=== PATIENT | female | born 1945 | race Caucasian/White ===

== ENCOUNTER 2016-12-23 15:16 | Inpatient (IN) | payer MEDICARE ==
[~2016-12-23] VITALS: Ht 157.5 cm; Wt 71.7 kg
--- NOTE | 2016-12-23 01:30 | NUR ---
RESTING WITH EYES CLOSED, RESP WITH EASE, NO DISTRESS NOTED, FALL PRECAUTIONS IN PLACE, CL IN REACH
[2016-12-23 17:20] LABS: BASOPHILS 0.2 % (0.0-2.0); EOSINOPHILS 0.3 % (0-7); HEMATOCRIT 29.1 % (36.0-48.0); HEMOGLOBIN 8.6 g/dL (12-16); IMMATURE GRANULOCYTES 0.3 % (0-5); LYMPHOCYTES 8.5 % (15-50); MCH 23.9 pg (26.0-34.0); MCHC 29.6 g/dL (31.0-37.0); MCV 80.8 fL (80.0-100.0); MEAN PLATELET VOLUME 9.8 fL (7.4-10.4); MONOCYTES 5.8 % (2-11); NEUTROPHILS 84.9 % (40-80); PLATELET COUNT 317 10x3/uL (130-400); RDW 17.1 % (11.5-14.5)
[2016-12-23 17:31] LABS: APTT 31.8 SECONDS (22.8-39.4); INR 1.04 (0.85-1.17); PROTIME 13.4 SECONDS (11.6-15.0)
[2016-12-23 17:33] LABS: ALBUMIN 3.1 g/dL (3.4-5.0); ANION GAP 17.5 mmol/L (8-16); BILIRUBIN - TOTAL 0.53 mg/dL (0.2-1.3); CALCIUM 8.8 mg/dL (8.5-10.1); CARBON DIOXIDE 20.6 mmol/L (21.0-32.0); CREATININE - SERUM 1.3 mg/dL (0.6-1.3); POTASSIUM - SERUM 3.1 mmol/L (3.5-5.1); PROTEIN - SERUM 6.6 g/dL (6.4-8.2)
[2016-12-23 19:54] VITALS: BP 148/59; BMI 28.9
--- NOTE | 2016-12-23 19:55 | NUR ---
PT ARRIVED TO UNIT VIA STRETCHER FROM ER. ADMITTED TO ROOM 2230 WITH DIAGNOSIS OF BILATERAL FX PATELLAS. PT TRANSFERRED TO BED WITH 3 PERSON SHEET LIFT. PT DENIED DISCOMFORT DURING TRANSFER. SALINE LOCK NOTED TO RFA. BORJA CATH PATENT AND DRAINING TO A GRAVITY BAG. SR'S ARE UP X 3 IN BED. CALL LIGHT AND BEDSIDE TABLE ARE WITHIN EASY REACH.
[2016-12-23] MEDS ORDERED: LASIX40 MG PO (21:11)
[2016-12-23] MEDS ORDERED: DIOVAN40 MG PO (21:11)
[2016-12-23] MEDS ORDERED: K-DUR20 MEQ PO (21:12)
[2016-12-23] MEDS ORDERED: BENTYL 20 MG TA20 MG PO (21:12)
[2016-12-23] MEDS ORDERED: PRISTIQ50 MG PO (21:12)
[2016-12-23] MEDS ORDERED: MECLIZINE HCL25 MG PO (21:13)
[2016-12-23] MEDS ORDERED: PROTONIX40 MG PO (21:13)
[2016-12-23] MEDS ORDERED: ROBAXIN-750750 MG PO (21:14)
[2016-12-23] MEDS ORDERED: LYRICA50 MG PO (21:14)
[2016-12-23] MEDS ORDERED: NITROQUICK0.4 MG SL (21:15)
[2016-12-23] MEDS ORDERED: PLAVIX75 MG PO (21:15)
--- NOTE | 2016-12-23 22:23 | NUR ---
PT RESTING IN BED WITH EYES OPEN. VOICED COMPLAINT OF NAHUM KNEE AND LEFT THIGH PAIN LEVEL OF 8. MEDICATED PER DEC.
--- NOTE | 2016-12-23 23:58 | NUR ---
PT IS RESTING IN BED WITH EYES CLOSED.
[2016-12-24 02:15] VITALS: BP 118/51
--- NOTE | 2016-12-24 02:35 | NUR ---
PT VOICED A PAIN LEVEL OF 8 IN NAHUM KNEES. MEDICATED PER DEC.
[2016-12-24 04:00] VITALS: BP 121/53
--- NOTE | 2016-12-24 04:39 | NUR ---
PT IS RESTING QUIETLY IN BED WITH EYES CLOSED. NO DISTRESS NOTED.
--- NOTE | 2016-12-24 07:14 | NUR ---
PATIENT IN BED WITH IV INTACT. NO COMPLAINTS OR SIGNS OF DISTRESS. FAMILY AT BEDSIDE. CALL LIGHT WITHIN REACH.
--- NOTE | 2016-12-24 07:26 | NUR ---
PT ASLEEP IN BED, DAUGHTER IN CHAIR BESIDE HER, AROUSES EASILY, PT ASKS FOR PAIN MED, NO OTHER COMPLAINTS, BED LOWEST POSITION, CALL LIGHT IN REACH, SIDE RAILS UP X2, WILL CONTINUE TO MONITOR
[2016-12-24 08:46] VITALS: BP 138/52
[2016-12-24 10:56] VITALS: Ht 157.5 cm; Wt 71.7 kg
[2016-12-24 11:53] VITALS: BP 137/53
[2016-12-24 16:25] VITALS: BP 154/66
--- NOTE | 2016-12-24 18:11 | NUR ---
PT RESTING IN BED, NO COMPLAINTS, BED LOWEST POSITION, CALL LIGHT IN REACH, SIDE RAILS UP X2, WILL CONTINUE TO MONITOR
[2016-12-24 20:00] VITALS: BP 159/77
[2016-12-25] VITALS (15 sets, daily range): BP systolic 128–159; BP diastolic 47–76
--- NOTE | 2016-12-25 02:18 | NUR ---
RESTING WITH EYES CLOSED, RESP WITH EASE, NO DISTRESS NOTED, FALL PRECAUTIONS IN PLACE, CL IN REACH
[2016-12-25 05:54] LABS: BASOPHILS 0.5 % (0.0-2.0); HEMATOCRIT 25.1 % (36.0-48.0); IMMATURE GRANULOCYTES 0.2 % (0-5); LYMPHOCYTES 23.2 % (15-50); MCH 23.7 pg (26.0-34.0); MCHC 29.1 g/dL (31.0-37.0); MCV 81.5 fL (80.0-100.0); MEAN PLATELET VOLUME 9.8 fL (7.4-10.4); MONOCYTES 12.5 % (2-11); NEUTROPHILS 59.6 % (40-80); PLATELET COUNT 274 10x3/uL (130-400); RBC 3.08 10x6/uL (4.00-5.40); RDW 17.6 % (11.5-14.5)
[2016-12-25 05:56] LABS: WBC 5.7 10x3/uL (4.8-10.8)
[2016-12-25 05:57] LABS: HEMOGLOBIN 7.3 g/dL (12-16)
[2016-12-25 06:29] LABS: APTT 39.4 SECONDS (22.8-39.4); INR 1.11 (0.85-1.17); PROTIME 14.2 SECONDS (11.6-15.0)
[2016-12-25 06:33] LABS: BILIRUBIN - TOTAL 0.96 mg/dL (0.2-1.3); CALCIUM 8.2 mg/dL (8.5-10.1); CARBON DIOXIDE 21.9 mmol/L (21.0-32.0); PROTEIN - SERUM 5.2 g/dL (6.4-8.2)
[2016-12-25 06:34] LABS: CREATININE - SERUM 0.9 mg/dL (0.6-1.3)
[2016-12-25 06:35] LABS: ALBUMIN 2.3 g/dL (3.4-5.0); POTASSIUM - SERUM 2.9 mmol/L (3.5-5.1)
--- NOTE | 2016-12-25 06:45 | NUR ---
PAGE DR. SHARMA ABOUT PT HGB RESULTS OF 7.3 AWAITING FOR RESPONSE. WILL INFORM ON-COMING NURSE.
--- NOTE | 2016-12-25 07:35 | NUR ---
PT SLEEPING IN BED, EASILY AROUSED WHEN SPOKEN TO, CAN EXPRESS CARES AND CONCERNS, NO CURRENT NEEDS, ASSESSMENT COMPLETE, CALL LIGHT IN REACH, WILL CONTINUE TO MONITOR
--- NOTE | 2016-12-25 08:42 | NUR ---
PAGED DR SHARMA AGAIN TO INFORM HIM HER HGB 7.3
--- NOTE | 2016-12-25 11:53 | NUR ---
20 GUAGE IV SITED TO L FOREARM. X1 ATTEMPT. SECURED WITH TAPE AND CLAMPED. POPEYE BONE, ALERTED TO START BLOOD.
--- NOTE | 2016-12-25 12:50 | NUR ---
STARTED INFUSING BLOOD, NO ADVERSE REACTIONS, TOLERATING WELL, STARTING VITALS T-98.8 P-83 R-16 BP-146/71, WILL CONTINUE TO MONITOR
--- NOTE | 2016-12-25 14:37 | NUR ---
PT TOLERATING BLOOD INFUSION WELL, NO ADVERSE REACTIONS, WILL CONTINUE TO MONITOR
--- NOTE | 2016-12-25 15:10 | NUR ---
2ND UNIT OF BLOOD STARTED, NO ADVERSE REACTIONS, TOLERATING WELL WILL CONTINUE TO MONITOR
--- NOTE | 2016-12-25 19:38 | NUR ---
REC'D LYING IN BED AWAKE AND ALERT. RESP EVEN AND UNLABORED WITH NO DISTRESS NOTED. CAN EXPRESS NEEDS AND WANTS. ASSISTANCE GIVEN WITH TURNING AND REPOSITIONING. ASSESSMENT COMPLETED. C/L IN REACH AT BEDSIDE.
[2016-12-26] VITALS (12 sets, daily range): BP systolic 143–169; BP diastolic 56–86
--- NOTE | 2016-12-26 02:00 | NUR ---
PT IN BED WITH NO DISTRESS. RESPIRATIONS EVEN AND UNLABORED. LEFT FOREARM IV WITH FLUIDS RUNNING PER ORDER. BORJA IS DRAINING URINE BY GRAVITY. SCD'S ON. DILAUDID CANDY BAR ATTENDANT IN PLACE FOR PAIN CONTROL. SIDE RAILS UP X 2. BED LOW. CALL LIGHT IN REACH.
[2016-12-26 04:22] LABS: BASOPHILS 0.6 % (0.0-2.0); EOSINOPHILS 4.7 % (0-7); HEMATOCRIT 28.7 % (36.0-48.0); HEMOGLOBIN 8.9 g/dL (12-16); IMMATURE GRANULOCYTES 0.2 % (0-5); LYMPHOCYTES 20.9 % (15-50); MCH 25.3 pg (26.0-34.0); MCV 81.5 fL (80.0-100.0); MONOCYTES 8.5 % (2-11); NEUTROPHILS 65.1 % (40-80); PLATELET COUNT 248 10x3/uL (130-400); RBC 3.52 10x6/uL (4.00-5.40); RDW 17.9 % (11.5-14.5); WBC 6.6 10x3/uL (4.8-10.8)
[2016-12-26 04:45] LABS: ALBUMIN 2.1 g/dL (3.4-5.0); ANION GAP 12.2 mmol/L (8-16); BILIRUBIN - TOTAL 1.7 mg/dL (0.2-1.3); CALCIUM 8.2 mg/dL (8.5-10.1); CARBON DIOXIDE 23.8 mmol/L (21.0-32.0); CREATININE - SERUM 0.9 mg/dL (0.6-1.3)
--- NOTE | 2016-12-26 08:00 | NUR ---
CONSENT FORMS SIGNED AND WITNESSED AT THIS TIME. PRE OPERATIVE MEDICATIONS GIVEN WITH THE EXCEPTION OF ROBINUL PT WAS NAUSEOUS. PRN ZOFRAN ADMINISTERED. GRANDAUGHTER AT BEDSIDE. IV TO LEFT FOREARM PATENT AND ASSESSMENT PERFORMED PER FLOWSHEET. CALL LIGHT IN REACH, WILL CONTINUE WITH PLAN OF CARE.
--- NOTE | 2016-12-26 08:46 | NUR ---
TAKEN TO PRE OP HOLDING AREA AT THIS TIME. WILL MONITOR PT AFTER SURGERY.
--- NOTE | 2016-12-26 10:17 | NUR ---
LEFT SHOULDER FX SO ARM WAS PLACED IN A SLING PRIOR TO SURG PER D.N.
--- NOTE | 2016-12-26 11:35 | NUR ---
RECEIVED BACK TO ROOM 2230 AT THIS TIME FROM PACU. VITAL SIGNS STABLE AND LIMITED RADIOLOGY TECHNICIAN INITIATED PER ORDER. FAMILY AT BEDSIDE. WILL CONTINUE TO MONITOR PT.
--- NOTE | 2016-12-26 13:00 | NUR ---
SLEEPING AT THIS TIME. VITAL SIGNS STABLE AND RESPIRATIONS EVEN AND ON LABORED. CALL LIGHT IN REACH AND MARY MAT ALARM ON AND IN WORKING ORDER. DAUGHTER AT BEDSIDE. WILL CONTINUE WITH PLAN OF CARE.
--- NOTE | 2016-12-26 15:30 | NUR ---
DAUGHTER AT BEDSIDE. PT DENIES NEEDS AT THIS TIME. FILLING MIXER IN USE FOR PAIN CONTROL. CALL LIGHT IN REACH, WILL CONTINUE WITH PLAN OF CARE.
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
--- NOTE | 2016-12-26 17:06 | NUR ---
Rehab Note- Rehab Prescreen Order received. The patient has [facility] and will require a PreAuth priot to IRF stay. Will need an OT & PT eval for PreAuth. Thank you for this referral! Hemalatha Sellers RN Clinical Liaison, Michael
--- NOTE | 2016-12-26 19:51 | NUR ---
PT LYING IN BED CRYING , PRN PERCOCET GIVEN, SUMANTH WELL, ASSESSMENT COMPETED, NO ACUTE DISTRESS NOTED, DTR IN ROOM, FALL PRECAUTIONS IN PLACE, CL IN REACH, WILL MONITOR
[2016-12-27 01:00] VITALS: BP 151/72
--- NOTE | 2016-12-27 01:28 | NUR ---
PRN PAIN MED GIVEN PER REQUEST FOR KNEE PAIN, SUMANTH WELL, DTR AT BEDSIDE, CL IN REACH
[2016-12-27 04:00] VITALS: BP 160/75
[2016-12-27 05:39] LABS: BASOPHILS 0.3 % (0.0-2.0); HEMATOCRIT 29.3 % (36.0-48.0); HEMOGLOBIN 9.1 g/dL (12-16); IMMATURE GRANULOCYTES 0.1 % (0-5); LYMPHOCYTES 12.8 % (15-50); MCH 25.4 pg (26.0-34.0); MCHC 31.1 g/dL (31.0-37.0); MCV 81.8 fL (80.0-100.0); MEAN PLATELET VOLUME 9.6 fL (7.4-10.4); MONOCYTES 9.2 % (2-11); NEUTROPHILS 75.6 % (40-80); PLATELET COUNT 247 10x3/uL (130-400); RBC 3.58 10x6/uL (4.00-5.40); WBC 7.5 10x3/uL (4.8-10.8)
--- NOTE | 2016-12-27 05:52 | NUR ---
PRN PAIN MED GIVEN FOR C/O BREAKTHROUGH PAIN 05/08, SUMANTH WELL, DTR AT BEDSIDE, FALL PRECAUTIONS IN PLACE, CL IN REACH
[2016-12-27 06:16] LABS: ALBUMIN 2.1 g/dL (3.4-5.0); BILIRUBIN - TOTAL 0.85 mg/dL (0.2-1.3); CALCIUM 8.3 mg/dL (8.5-10.1); CARBON DIOXIDE 22.3 mmol/L (21.0-32.0); CREATININE - SERUM 0.9 mg/dL (0.6-1.3); POTASSIUM - SERUM 3.3 mmol/L (3.5-5.1); PROTEIN - SERUM 5.1 g/dL (6.4-8.2)
--- NOTE | 2016-12-27 06:53 | NUR ---
KCL GIVEN PER E. PROTOCOL FOR LEVEL OF 3.3, LABS FOR RECHECK ORDERED
--- NOTE | 2016-12-27 08:00 | NUR ---
ECONOMIC ANALYST D/C AT THIS TIME AND BORJA CATHETER D/C WITH CATH TIP INTACT. PT TOLERATED WITHOUT COMPLAINTS. CALL LIGHT IN REACH, WILL CONTINUE WITH PLAN OF CARE.
[2016-12-27 08:13] VITALS: BP 161/71
--- NOTE | 2016-12-27 10:08 | NUR ---
SCHEDULED COLACE ADMINISTERED AT THIS TIME. ASSESSMENT PERFORMED PER FLOWSHEET AND ICE PACKS APPLIED TO BILATERAL KNEES. REPOSITIONED IN BED FOR COMFORT. INSTRUCTED PT ON USE OF INCENTIVE SPIROMETER AND INSPIRATORY VOLUME OF 1,000ML. CALL LIGHT IN REACH, BED ALARM ON AND IN WORKING ORDER. WILL CONTINUE WITH PLAN OF CARE.
[2016-12-27 11:32] VITALS: BP 151/70
--- NOTE | 2016-12-27 12:15 | NUR ---
VOIDED IN BEDPAN WITHOUT DIFFICULTY. PROCESSING TECHNOLOGIST ASSISTING PT WITH MEAL AT THIS TIME. CALL LIGHT IN REACH, WILL CONTINUE WITH PLAN OF CARE.
--- NOTE | 2016-12-27 13:04 | NUR ---
NUTRITION MONITORING & EVAL CHART REVIEWED. TOLERATING REG DIET. 100% INTAKE LUNCH. WILL CONTINUE TO PROVIDE DIET, HONOR FOOD PREFERENCES. RD FOLLOWING
--- NOTE | 2016-12-27 14:28 | NUR ---
Rehab Note- Awaiting PreAuth for possibly being admitted to IRF through [facility]. Thank you again for this referral! Hemalatha Sellers RN Clinical Liaison, Michael
[2016-12-27 14:58] VITALS: BP 110/60
--- NOTE | 2016-12-27 15:06 | NUR ---
PRN PERCOCET-10 ADMINISTERED AT THIS TIME. CALL LIGHT IN REACH, MARQUIS CHAUDHARI AT THIS TIME. CALL LIGHT IN REACH, WILL CONTINUE WITH PLAN OF CARE
--- NOTE | 2016-12-27 18:46 | NUR ---
SCHEDULED MEDICATIONS ADMINISTERED AT THIS TIME WELL PRN PERCOCET-10 FOR PAIN. ASSESSMENT PERFORMED PER FLOWSHEET. SON REMAINS AT BEDSIDE. CALL LIGHT IN REACH AND MARY MAT ALARM ON AND IN USE. WILL CONTINUE WITH PLAN OF CARE.
[2016-12-27 19:00] VITALS: BP 140/66
[2016-12-28] VITALS: BP 144/74
[2016-12-28 04:00] VITALS: BP 154/68
[2016-12-28 06:13] LABS: BASOPHILS 0.4 % (0.0-2.0); EOSINOPHILS 4.6 % (0-7); HEMATOCRIT 30.3 % (36.0-48.0); HEMOGLOBIN 9.1 g/dL (12-16); IMMATURE GRANULOCYTES 0.2 % (0-5); LYMPHOCYTES 17.9 % (15-50); MCH 24.9 pg (26.0-34.0); MEAN PLATELET VOLUME 10.2 fL (7.4-10.4); MONOCYTES 9.3 % (2-11); NEUTROPHILS 67.6 % (40-80); PLATELET COUNT 248 10x3/uL (130-400); RBC 3.65 10x6/uL (4.00-5.40); RDW 18.7 % (11.5-14.5); WBC 5.7 10x3/uL (4.8-10.8)
[2016-12-28 06:31] LABS: ALBUMIN 2.1 g/dL (3.4-5.0); ANION GAP 11.9 mmol/L (8-16); CALCIUM 8.7 mg/dL (8.5-10.1); CARBON DIOXIDE 24.1 mmol/L (21.0-32.0); CREATININE - SERUM 0.9 mg/dL (0.6-1.3); PROTEIN - SERUM 5.3 g/dL (6.4-8.2)
--- NOTE | 2016-12-28 07:15 | NUR ---
REPORT RECEIVED FROM PEST TECHNICIAN NURSE. CALL LIGHT IN REACH.
[2016-12-28 08:30] VITALS: BP 148/84
--- NOTE | 2016-12-28 08:50 | NUR ---
ASSESSMENT COMPLETED. PLEXI-PULSES TO BLE. BED ALARM ON. SON IN ROOM. CALL LIGHT IN REACH. WILL CONTINUE WITH PLAN OF CARE.
--- NOTE | 2016-12-28 09:20 | NUR ---
AM MEDS ADMINISTERED WITH PERCOCET PER STUDENT NURSE AND INSTRUCTOR. CALL LIGHT IN REACH.
--- NOTE | 2016-12-28 10:36 | NUR ---
LAYING QUIETLY IN BED AT PRESENT DENIES ANY NEEDS RESP EVEN AND UNLABORED AT PRTESENT.
[2016-12-28 12:18] VITALS: BP 134/76
--- NOTE | 2016-12-28 12:40 | NUR ---
EATING LUNCH AT THIS TIME. CALL LIGHT IN REACH.
--- NOTE | 2016-12-28 13:40 | NUR ---
PERCOCET PO PER STUDENT NURSE AND INSTRUCTOR. CALL LIGHT IN REACH.
--- NOTE | 2016-12-28 15:40 | NUR ---
RESTING WITH EYES CLOSED. RESP EVEN AND UNLABORED. CALL LIGHT IN REACH.
[2016-12-28 16:43] VITALS: BP 134/74; BP 217/131
--- NOTE | 2016-12-28 17:25 | NUR ---
STATES PAIN IS A 10 AND REQUESTING PAIN PILL. PERCOCET PO. SON IN ROOM. CALL LIGHT IN REACH.
--- NOTE | 2016-12-28 18:07 | NUR ---
NO CHANGES IN INITIAL ASSESSMENT. PLEXI-PULSES TO BLE. BED ALARM ON. SON AT BEDSIDE. CALL LIGHT IN REACH. WILL CONTINUE WITH PLAN OF CARE.
[2016-12-28 20:00] VITALS: BP 148/82
--- NOTE | 2016-12-28 20:18 | NUR ---
AWAKE,ALERT, NO COMPLAINTS AT PRESENT. SL TO RIGHT AND LEFT FOREARM PATENT WIHTOUT REDNESS OR EDEMA NOTED. BILATERAL KNEES WIHT TEMITOPE WRAP CLEAN/DRY AND INTACT. NO NV DEFICIECTS NOTED. CL IN REACH. FAMILY AT BEDSIDE.
[2016-12-29] VITALS: BP 156/64
--- NOTE | 2016-12-29 00:18 | NUR ---
RESTING QUIETLY. NO DISTRESS NOTED. CL IN REACH. FAMILY REMAINS AT BEDSIDE.
--- NOTE | 2016-12-29 03:09 | NUR ---
RN NOTE: PT RESTING IN SUPINE POSITION WITH EYES CLOSED AND UNLABORED BREATHING. LEFT ARM IN SLING. IV X2 SALINE LOCKED. FAMILY MEMBER IS AT BEDSIDE. WILL CONTINUE TO MONITOR FOR NEEDS. CALL LIGHT WITHIN REACH.
[2016-12-29 04:00] VITALS: BP 149/72
[2016-12-29 05:28] LABS: BASOPHILS 0.5 % (0.0-2.0); EOSINOPHILS 4.2 % (0-7); HEMATOCRIT 30.1 % (36.0-48.0); HEMOGLOBIN 9.3 g/dL (12-16); LYMPHOCYTES 21.7 % (15-50); MCH 25.7 pg (26.0-34.0); MCHC 30.9 g/dL (31.0-37.0); MCV 83.1 fL (80.0-100.0); MEAN PLATELET VOLUME 10.1 fL (7.4-10.4); MONOCYTES 8.2 % (2-11); NEUTROPHILS 65.4 % (40-80); PLATELET COUNT 285 10x3/uL (130-400); RBC 3.62 10x6/uL (4.00-5.40); RDW 19.1 % (11.5-14.5); WBC 5.5 10x3/uL (4.8-10.8)
[2016-12-29 05:41] LABS: ALBUMIN 2.2 g/dL (3.4-5.0); ANION GAP 12.3 mmol/L (8-16); BILIRUBIN - TOTAL 0.61 mg/dL (0.2-1.3); CALCIUM 8.4 mg/dL (8.5-10.1); CARBON DIOXIDE 25.3 mmol/L (21.0-32.0); CREATININE - SERUM 0.9 mg/dL (0.6-1.3); POTASSIUM - SERUM 3.6 mmol/L (3.5-5.1); PROTEIN - SERUM 5.5 g/dL (6.4-8.2)
--- NOTE | 2016-12-29 05:44 | NUR ---
RESTING QUIETLY. NO DISTRESS NOTED. CL IN REACH. FAMILY AT BEDSIDE.
--- NOTE | 2016-12-29 08:19 | NUR ---
REPORT RECEIVED FROM LILLI LARA.
[2016-12-29 08:30] VITALS: BP 181/73
--- NOTE | 2016-12-29 08:43 | NUR ---
ASSESSMENT COMPLETED. PERCOCET PO WITH AM MEDS ADMINISTERED. SCDs TO BLE. CALL LIGHT IN REACH. WILL CONTINUE WITH PLAN OFCARE.
--- NOTE | 2016-12-29 09:57 | NUR ---
PHYSICAL THERAPY IN ROOM AT THIS TIME.
--- NOTE | 2016-12-29 11:40 | NUR ---
STATES TAKING HER PAIN PILL ONE HOUR BEFORE PHYSICAL THERAPY HELPS HER BETTER THAN ANYTHING. WILL GIVE THE NEXT ONE BEFORE AFTERNOON THERAPY.
[2016-12-29 12:28] VITALS: BP 133/83
--- NOTE | 2016-12-29 12:56 | NUR ---
PERCOCET PO ADMINISTERED PER LILLI LARA.
--- NOTE | 2016-12-29 14:20 | NUR ---
FAMILY AT BEDSIDE. CALL LIGHT IN REACH. NO NEEDS VOICED.
[2016-12-29 16:10] VITALS: BP 121/73
--- NOTE | 2016-12-29 16:56 | NUR ---
PAIN OF 6. PERCOCET PO. SON IN ROOM. CALL LIGHT IN REACH.
--- NOTE | 2016-12-29 18:00 | NUR ---
NO CHANGES IN INITIAL ASSESSMENT. EATING SUPPER. SCDs TO BLE. BED ALARM ON. SON IN ROOM. CALL LIGHT IN REACH. WILL CONTINUE WITH PLAN OF CARE.
[2016-12-29 20:00] VITALS: BP 120/65
--- NOTE | 2016-12-29 20:20 | NUR ---
AWAKE,ALERT. DRSG TO BILATERAL KNEES CLEAN,DRY,INTACT. NO DEFICIETS NOTED TO LOWER EXTREMITIES. SL INTACT TO BILATERAL UPPER EXT.WITHOUT REDNESS OR EDEMA. CL IN REACH. FAMILY AT BEDSIDE.
--- NOTE | 2016-12-30 01:37 | NUR ---
EYES CLOSED RESP EVEN AND UNLAOBED. NO DISTRESS NOTED. CL IN REACH. FAMILY REMAINS AT BEDSIDE.
--- NOTE | 2016-12-30 03:29 | NUR ---
PT LYING BACK IN BED RESTING QUIETLY WITH EYES CLOSED. RR NONLABORED. NO S/S OF DISTRESS OR ANY CURRENT NEEDS AT THIS TIME. CL IN REACH, BED IN LOWEST, SIDE RAILS X2. WILL CTM.
[2016-12-30 04:00] VITALS: BP 149/70
--- NOTE | 2016-12-30 04:50 | NUR ---
LYING QUIETLY. NO COMPLAINTS VOICED. CL IN REACH
[2016-12-30 05:14] LABS: BASOPHILS 0.4 % (0.0-2.0); EOSINOPHILS 4.9 % (0-7); HEMATOCRIT 28.2 % (36.0-48.0); HEMOGLOBIN 8.5 g/dL (12-16); IMMATURE GRANULOCYTES 0.2 % (0-5); LYMPHOCYTES 21.7 % (15-50); MCH 25.3 pg (26.0-34.0); MCHC 30.1 g/dL (31.0-37.0); MCV 83.9 fL (80.0-100.0); MEAN PLATELET VOLUME 9.6 fL (7.4-10.4); MONOCYTES 7.7 % (2-11); NEUTROPHILS 65.1 % (40-80); PLATELET COUNT 282 10x3/uL (130-400); RBC 3.36 10x6/uL (4.00-5.40); RDW 19.4 % (11.5-14.5); WBC 5.3 10x3/uL (4.8-10.8)
[2016-12-30 05:34] LABS: ALBUMIN 2.2 g/dL (3.4-5.0); ANION GAP 13.7 mmol/L (8-16); BILIRUBIN - TOTAL 0.56 mg/dL (0.2-1.3); CALCIUM 7.8 mg/dL (8.5-10.1); CARBON DIOXIDE 25.2 mmol/L (21.0-32.0); CREATININE - SERUM 0.9 mg/dL (0.6-1.3); POTASSIUM - SERUM 3.9 mmol/L (3.5-5.1); PROTEIN - SERUM 4.9 g/dL (6.4-8.2)
--- NOTE | 2016-12-30 07:15 | NUR ---
REPORT RECEIVED FROM REGISTERED NURSE NURSERY NURSE. CALL LIGHT IN REACH.
--- NOTE | 2016-12-30 07:15 | NUR ---
PATIENT IN BED WITH IV INTACT. NO COMPLAINTS OR SIGNS OF DISTRESS. CALL LIGHTW ITHIN REACH.
--- NOTE | 2016-12-30 08:11 | NUR ---
ASSESSMENT COMPLETED. PERCOCET PO PER PATIENT REQUEST. SON AND DR. BERNARD AT BEDSIDE. CALL LIGHT IN REACH. BED ALARM ON. SCDs TO BLE. WILL CONTINUE WITH PLAN OF CARE.
[2016-12-30 08:15] VITALS: BP 141/75
--- NOTE | 2016-12-30 09:25 | NUR ---
AM MEDS ADMINISTERED PER STUDENT NURSE AND INSTRUCTOR. CALL LIGHT IN REACH.
--- NOTE | 2016-12-30 11:00 | NUR ---
NO NEEDS VOICED AT THIS TIME. CALL LIGHT IN REACH.
--- NOTE | 2016-12-30 12:32 | NUR ---
PERCOCET PO. SON IN ROOM. CALL LIGHT IN REACH.
[2016-12-30 12:57] VITALS: BP 115/65
--- NOTE | 2016-12-30 14:30 | NUR ---
NO NEEDS VOICED AT THIS TIME. CALL LIGHT IN REACH.
[2016-12-30 16:15] VITALS: BP 131/75
--- NOTE | 2016-12-30 16:30 | NUR ---
REQUESTING PAIN PILL SO PERCOCET PO. SON AND IT RECRUITER IN ROOM. CALL LIGHT IN REACH.
--- NOTE | 2016-12-30 16:35 | NUR ---
Recieved a call from Angie at [facility]. The medical dermatologist has denied inpatient rehab for this patient, stating she meets criteria for a lower level of care such as a SNF. A peer to peer can be done if the physician disagrees. The SAGAR Ayala Has been made aware. Esther Mejia RN Clinical Liaison, Rehab
--- NOTE | 2016-12-30 16:36 | NUR ---
OT NOTE: PT COMPLETED BUE FM SKILLS. PT COMPLETED BED MOB USING RUE. PT COMPLETED ORAL HYGIENE WITH SET UP. THANK YOU, NITA HERNANDEZ
--- NOTE | 2016-12-30 16:56 | NUR ---
CM REASSESSMENT NOTE: PATIENT HAS BEEN DENIED INPATIENT REHAB. PATIENT DID CHOOSE A COUPLE OF SNF. [facility] HAS NO BEDS WHICH WAS HER 1ST CHOICE. [facility] IS HER 2ND CHOICE AND REFERRAL WILL BE SENT. PATIENTS INSURANCE CARD HAS A DIFFERENT NAME THAN [facility]ERS AND HER DAUGHTER WILL BRING IT WHEN SHE COMES TO [facility]. CALLED [facility] AND THERE WAS NO ONE THERE IN ADMINISTRATION.
--- NOTE | 2016-12-30 18:46 | NUR ---
NO CHANGES IN INITIAL ASSESSMENT. CALL LIGHT IN REACH. WILL CONTINUE WITH PLAN OF CARE.
[2016-12-30 20:00] VITALS: BP 141/61
--- NOTE | 2016-12-30 23:23 | NUR ---
ASSESSED AT THE BEGINNING OF THE SHIFT. PT IS ALERT AND ORIENTED, ABLE TO VERBALIZE NEEDS. HER SON IS REMAINING IN THE ROOM TONIGHT. BOTHE OF HER KNEES ARE WRAPPED UP WITH TEMITOPE DRESSINGS IN PLACE. THERE IS A LARGE ABD HERNIA, NOTED ON ASSESSMENT. SOME REDNESS TO BUTTOCKS. PAIN MEDS WERE GIEN AT BEDTIME AND SHE IS USING A BEDPAN TO GO TO THE BATHROOM. THE BED IS LOW, RAILS UP X'S 2 WITH THE CALL LIGHT AT HAND.
[2016-12-31] VITALS: BP 136/65
[2016-12-31 04:00] VITALS: BP 140/61
--- NOTE | 2016-12-31 08:27 | NUR ---
PT. AOX4 RESP EVEN AND NONLABORED LUNG SOUNDS CLEAR. SKIN PINK WARM AND DRY WITH GOOD TURGOR NO EDEMA. CAPILLARY REFILL <3SEC ADB SOFT AND ROUNDED [id number] BED IN LOWEST SETTING AND CALL LIGHT WITHIN REACH
[2016-12-31 08:50] VITALS: BP 143/56
--- NOTE | 2016-12-31 11:17 | NUR ---
REQUESTED AND GIVEN ONE PERCOCET PO FOR C/O BILATERAL KNEE PAIN LEVEL 9. WILL MONITOR.
[2016-12-31 12:48] VITALS: BP 114/66
[2016-12-31 13:21] LABS: % SATURATION 2 % (15-55); IRON 7 ug/dl (35-150); TOTAL IRON BIND CAPACITY 342 ug/dl (260-445); UNSAT IRON BIND CAPACITY 335 ug/dl (150-375)
[2016-12-31 16:49] VITALS: BP 105/44
--- NOTE | 2016-12-31 19:30 | NUR ---
REC'D IN BED AWAKE AMD ALERT. RESP EVEN AND UNLABORE WITH NO DISTRESS NOTED. CAN VOICE NEEDS AND WANTS. NO C/O PAIN OR DISCOMFORT NOTED OR VOICED AT THIS TIME. ASSESSMENT COMPLETED. C/L IN REACH AT BEDSIDE. C/L IN REACH AT BEDSIDE.
[2016-12-31 20:59] VITALS: BP 109/56
[2017-01-01] VITALS: BP 116/59
--- NOTE | 2017-01-01 03:26 | NUR ---
PATIENT RESTING WITH EYES CLOSED. NO VISIBLE SIGNS OF DISTRESS. BED IN LOWEST POSITION AND CALL LIGHT WITHIN REACH.
[2017-01-01 04:00] VITALS: BP 127/51; BP 152/73
[2017-01-01 05:25] LABS: BASOPHILS 0.6 % (0.0-2.0); EOSINOPHILS 3.5 % (0-7); HEMATOCRIT 29.4 % (36.0-48.0); HEMOGLOBIN 8.8 g/dL (12-16); IMMATURE GRANULOCYTES 0.2 % (0-5); MCH 25.5 pg (26.0-34.0); MCHC 29.9 g/dL (31.0-37.0); MCV 85.2 fL (80.0-100.0); MEAN PLATELET VOLUME 9.9 fL (7.4-10.4); MONOCYTES 8.8 % (2-11); NEUTROPHILS 58.9 % (40-80); PLATELET COUNT 309 10x3/uL (130-400); RBC 3.45 10x6/uL (4.00-5.40); RDW 19.3 % (11.5-14.5); WBC 5.2 10x3/uL (4.8-10.8)
[2017-01-01 06:10] LABS: ANION GAP 10.9 mmol/L (8-16); CALCIUM 8.3 mg/dL (8.5-10.1); CARBON DIOXIDE 27.2 mmol/L (21.0-32.0); POTASSIUM - SERUM 4.1 mmol/L (3.5-5.1)
[2017-01-01 07:48] VITALS: BP 130/61
--- NOTE | 2017-01-01 11:13 | NUR ---
Order received to check into possible rehab transfer to [facility]. Cm spoke to Isabel with [facility] who stated she is going to check to see if they have a contract with [facility] [employer] and call cm back. IF they have a insurance contaract patient will still require prior authorization to go to rehab which will not be able to take place till Monday when the insuarance office is open. Cm will continue to follow and will assist as needed with dc plans/needs. Treva Julian RN, [facility] [phone]
--- NOTE | 2017-01-01 11:40 | NUR ---
AWAKE AND ALERT AT THIS TIME. DRESSINGS TO BILATERAL KNEES C/D/I. GRANDDAUGHTER AT BEDSIDE. PLEXI PULSES ON AND IN WORKING ORDER. CALL LIGHT IN REACH, WILL CONTINUE WITH PLAN OF CARE.
--- NOTE | 2017-01-01 13:17 | NUR ---
Isabel with [facility] stated they do not have a contract with [facility] insurance, but could run benefits tomorrow to see if they have out of network benefits. CM will follow up on Monday regarding this information regarding rehab.
[2017-01-01 15:42] VITALS: BP 103/59
--- NOTE | 2017-01-01 20:00 | NUR ---
ASSESSMENT PER FLOWSHEET. IV PATENT LEFT FOREARM SALINE LOCKED. DRESSINGS TO BOTH KNEES C/D/I. HOB UP 30 DEGREES. PLEXI PULSE BOOTS ON. SR UP X2 CALL LIGHT WITHIN REACH.
[2017-01-01 21:00] VITALS: BP 120/54
--- NOTE | 2017-01-01 21:09 | NUR ---
MEDS GIVEN PER DEC. C/O INCISIONAL TO KNEES. PERCOCET 10 MG PO GIVEN FOR PAIN CONTROL.
[2017-01-02] VITALS (7 sets, daily range): BP systolic 104–127; BP diastolic 53–75
--- NOTE | 2017-01-02 00:20 | NUR ---
EYES CLOSED RESPIRATIONS WITH EASE AND UNLABORED.
--- NOTE | 2017-01-02 04:21 | NUR ---
EYES CLOSED RESPIRATIONS WITH EASE AND UNLABORED.
[2017-01-02 05:15] LABS: BASOPHILS 0.4 % (0.0-2.0); EOSINOPHILS 2.3 % (0-7); HEMOGLOBIN 10.5 g/dL (12-16); IMMATURE GRANULOCYTES 0.1 % (0-5); LYMPHOCYTES 13.2 % (15-50); MCH 25.2 pg (26.0-34.0); MCHC 29.6 g/dL (31.0-37.0); MCV 85.3 fL (80.0-100.0); MEAN PLATELET VOLUME 10.2 fL (7.4-10.4); MONOCYTES 6.9 % (2-11); NEUTROPHILS 77.1 % (40-80); RDW 19.4 % (11.5-14.5)
[2017-01-02 05:19] LABS: HEMATOCRIT 35.5 % (36.0-48.0); PLATELET COUNT 408 10x3/uL (130-400); RBC 4.16 10x6/uL (4.00-5.40)
[2017-01-02 05:32] LABS: ANION GAP 12.7 mmol/L (8-16); CALCIUM 8.6 mg/dL (8.5-10.1); CARBON DIOXIDE 26.3 mmol/L (21.0-32.0); CREATININE - SERUM 0.9 mg/dL (0.6-1.3)
--- NOTE | 2017-01-02 07:35 | NUR ---
REPOSITIONED FOR COMFORT. DRESSINGS ARE C/D/I TO NAHUM KNEES. HER EXPRESSION IS FLAT AND SHE DOESN'T SMILR THROUGHOUT OUR CONVERSATION. SHE STATE SHTAT SHE WAS AWAKE MOST OF THE NIGHT WITH DRY HEAVES. SHE WAS GIVEN SOME ZOFRAN THIS MORNING. SHE STATES THAT IT HAS HELPED SOME AND SHE JUST WANTS TO SLEEP. INSTRUCTED HER TO CALL FOR ASSISTANCE NEEDED OR WITH ANY QUESTIONS. CALL LIGHT IS WITHIN HER REACH.
--- NOTE | 2017-01-02 09:25 | NUR ---
SIRENA MCGINNIS REFUSING HER MEDICATIONS DUE TO NAUSEA. SHE REQUEST TAKING THEM LATER. " I DONT WANT TO START DRY HEAVING AGAIN." SHE HAS BEEN SIPPING ON HER LEMON NAVAJO. SHE ATE SOME PRUNES YESTERDAY WITHOUT RESULTS. SHE HASN'T HAD A BM "IN A COUPLE OF DAYS." BOWELS ARE HYPOACTIVE. SOME BOWEL SOUNDS HEARD. HER BELLY IS DISTENDED. SHE FALLS ASLEEP WITH ME IN THE ROOM. STATES THAT SHE WAS AWAKE MOST OF THE NIGHT. SHE DENIES PAIN "I'M LAYING DOWN RGHT NOW AND I DON'T HURT." CALL LIGHT IS WITHIN REACH. MONTIRING.
--- NOTE | 2017-01-02 18:20 | NUR ---
PT IS RECEIVED FROM MED SURG FLOOR. PT TRANSFERRED FROM WHEELCHAIR TO BED WITH MAXIMUM ASSISTANCE. WHEN PT GOT IN BED SHE HAD DIARRHEA. LINENS AND GOWN CHANGED. PT THEN HAD ANOTHER EPISODE. LINENS WERE AGAIN CHANGED. GEN- AWAKE AND ALERT. LUNGS- CLEAR. HEART- RRR. ABD SOFT WITH BS+. EXT BILATERAL KNEES WITH DRESSINGS INTACT BOTH KNEES. PT'S INCISION'S HAS SHARRON. FEET- WARM AND DRY AND PULSES PALPABLE. BED IS LOW, CALL LIGHT IN REACH AND SIDE RAILS UP X 2.
--- NOTE | 2017-01-02 19:00 | NUR ---
AWAKE AND ALERT DURING INITIAL ROUNDS. INTRODUCED SELF. V/S TAKEN. ASSESSMENT DONE. STATUS POST ORIF BILATERAL PATELLA--DAY 6. DENIES NEED FOR PAIN MED AT THIS TIME. SCD's TO BOTH LOWER EXTREMITIES TO PREVENT DVT.
--- NOTE | 2017-01-02 19:45 | NUR ---
ASSISTED WITH THE BED LOPEZ.
--- NOTE | 2017-01-02 20:10 | NUR ---
EYES CLOSED BUT EASILY AWAKENED.
--- NOTE | 2017-01-02 21:09 | NUR ---
HS MEDS GIVEN. SEE E-MAR. PT HAD DIARRHEA. PARTIAL LINEN CHANGED. MILK OF MAG AND COLACE HELD.
--- NOTE | 2017-01-02 22:20 | NUR ---
PATIENT PLACED ON BED LOPEZ REQUESTED A FEW MINUTES. ENC TO USE CALL LIGHT WHEN SHE IS DONE. PT VERBALIZED UNDERSTANDING.
--- NOTE | 2017-01-02 22:30 | NUR ---
PATIENT ASSISSTED OFF OF BED LOPEZ NO URINE NOTED. DENIES FURTHER NEEDS.
--- NOTE | 2017-01-02 23:22 | NUR ---
ASSISTED WITH THE BEDPAN. VOIDED.
--- NOTE | 2017-01-02 23:25 | NUR ---
V/S STABLE. DENIES NEEDS AT THIS TIME.
--- NOTE | 2017-01-03 01:16 | NUR ---
INCONTINENT OF STOOL. PARTIAL LINEN CHANGE DONE. KEPT PT CLEAN AND DRY.
[2017-01-03 03:49] VITALS: BP 107/62
--- NOTE | 2017-01-03 03:50 | NUR ---
V/S STABLE. INCONTINENT OF STOOL. CLEANED AND KEPT DRY. ASSISTED WITH THE BEDPAN. VOIDED.
--- NOTE | 2017-01-03 05:44 | NUR ---
ASSISTED WITH THE BEDPAN. VOIDED. INCONTINENT OF SMALL AMOUNT OF STOOL. KEPT PT CLEAN AND DRY. SLEPT ON AND OFF DURING THE NIGHT. CONTINUING PLAN OF CARE.
[2017-01-03 06:39] LABS: BASOPHILS 0.4 % (0.0-2.0); EOSINOPHILS 1.1 % (0-7); HEMATOCRIT 35.3 % (36.0-48.0); HEMOGLOBIN 10.5 g/dL (12-16); IMMATURE GRANULOCYTES 0.2 % (0-5); LYMPHOCYTES 13.1 % (15-50); MCH 25.5 pg (26.0-34.0); MCHC 29.7 g/dL (31.0-37.0); MCV 85.7 fL (80.0-100.0); MEAN PLATELET VOLUME 9.6 fL (7.4-10.4); MONOCYTES 5.7 % (2-11); NEUTROPHILS 79.5 % (40-80); PLATELET COUNT 352 10x3/uL (130-400); RBC 4.12 10x6/uL (4.00-5.40); WBC 5.6 10x3/uL (4.8-10.8)
[2017-01-03 07:02] LABS: ALBUMIN 2.6 g/dL (3.4-5.0); ANION GAP 12.4 mmol/L (8-16); BILIRUBIN - TOTAL 0.55 mg/dL (0.2-1.3); CALCIUM 8.4 mg/dL (8.5-10.1); CARBON DIOXIDE 25.7 mmol/L (21.0-32.0); PROTEIN - SERUM 6.2 g/dL (6.4-8.2)
[2017-01-03 07:12] LABS: POTASSIUM - SERUM 3.1 mmol/L (3.5-5.1)
--- NOTE | 2017-01-03 07:30 | NUR ---
PT WAS LYING IN BED THIS AM. SHE STATES THAT HER ROOM IS COLD. TEMP ADJUSTED. PT IS LYING IN BED. GEN- AWAKE AND ALERT. LUNGS- CLEAR. HEART- RRR. ABD-SOFT. BS +, NON TENDER. EXT- NO EDEMA. PULSES PALPABLE DRESSINGS NOTED BILATERAL KNEES FROM BILATERAL PATELLAR ORIF'S. SHARRON INTACT- BOTH INCISION'S .BED IS LOW, SIDE RAILS UP X 2 AND CALL LIGHT IN REACH.
[2017-01-03 07:35] VITALS: BP 121/55
[2017-01-03] MEDS ORDERED: ELIQUIS2.5 MG PO (07:53)
[2017-01-03] MEDS ORDERED: PERCOCET 10/3251 TA1 PO (07:53)
--- NOTE | 2017-01-03 08:25 | NUR ---
Answered call light assisting with care. Pt states she had an accident and needed cleaned. Pt rolled without difficulty. Noted small BM and cleaned and replaced pads. Pt requested pain medication and sprite. No further needs at this time.
--- NOTE | 2017-01-03 08:35 | NUR ---
Let Vonnie Ji know of pain med need and sprite given
--- NOTE | 2017-01-03 08:45 | NUR ---
PATIENT IS TO BE DISCHARGED TODAY. I SPOKE WITH HEATHER JULIEN, FOR [facility]. I SPOKE WITH THE PATIENT ABOUT THE NAME OF HER INSURANCE AGENCY. SHE STATES IT IS [employer] IN [facility], . I PROVIDED THE NUMBER FOR [employer] TO [employer]ILY SO THEY CAN CONTACT THEM REGARDING PATIENT'S INSURACNE COVERAGE. ACCORDING TO WILY WHEN THEY RECEIVIE THIS INFORMATION PATIENT WILL BE ABLE TO COME TO [facility] FOR REHAB. WILL AWAIT CALL BACK FROM [employer]. SAGAR TO FOLLOW.
--- NOTE | 2017-01-03 09:09 | NUR ---
AM meds given as charted on emar. Pain med given for pt complaint "throbbing" in her knees. Also provided jaret care due to loose stool, towels and chux changed. No other needs at this time. Side rails up x 2 with phone and call light in reach.
--- NOTE | 2017-01-03 09:43 | NUR ---
Pt up per PT help with walker. Pt had BM in bed and attila changed.
--- NOTE | 2017-01-03 10:12 | NUR ---
PT IS SITTING UP IN CHAIR. . SHE OFFERS NO COMPLAINTS. CALL LIGHT IN REACH.
--- NOTE | 2017-01-03 11:38 | NUR ---
PT IS STILL SITTING UP IN CHAIR AND IS WAITING FOR LUNCH. SHE STATES PT WILL BE BACK TO PUT HER IN BED WHEN SHE IS DONE WITH LUNCH. SHE REQUEST TO HAVE A PAIN MED BEFORE THEY DO THIS.
--- NOTE | 2017-01-03 11:45 | NUR ---
I WENT TO CHECK ON PT AND SHE WAS SITTING UP CRYING. SHE STATES THAT SHE IS HAVING EXCRUTIATING PAIN IN HER EPIGASTRIC AREA TO HER LEFT RIBS. I MEDICATED HER EARLIER FOR THIS AND PAIN GOT BETTER. STATES PAIN CAME AGAIN SUDDENLY AND WORSE. I CALLED [facility] TO LET THEM KNOW. NEW ORDERS NOTED.
--- NOTE | 2017-01-03 12:32 | NUR ---
Nutrition Follow Up: Pt was on the phone at the time of RD visit. Interview deferred. Chart reviewed. Pt is eating 72% meal avg on a Regular diet. +BM 01/03/17. No new wt to assess. Labs noted. Meds noted including Dulcolax, Colace. Pt with good po intake at this time. Rec continue current diet. Will continue to send selective menus and honor food preferences. RD following.
--- NOTE | 2017-01-03 12:38 | NUR ---
PT REQUEST PAIN PIL BEFORE PT COMES BACK TO WALK HER. PAIN MED GIVEN. PT IS STILL SITTING UP IN CHAIR. TOLERATING WELL. CALL LIGHT IN REACH.
--- NOTE | 2017-01-03 14:01 | NUR ---
PT TEARFUL AND SAYING THAT [facility] LIED TO ME - I WOULD HAVE NEVER AGREED TO GO TO A CORRECTION. PAULINA HER AND CHECKING ON THIS FOR THE PATIENT.
--- NOTE | 2017-01-03 14:12 | NUR ---
WILY AT [facility] CALLED AND THE NOEMY FROM [facility] CALLED AND THEY WILL BE HERE AT 4:00 TO PICK HER UP. I CALLED HER DAUGHTER TO INFORM HER AND SHE WILL MEET PT THERE.
--- NOTE | 2017-01-03 14:12 | NUR ---
PAULINA CALLED AND SPOKE TO WILY AND PT IS ONLY GOING TO OVERFLOW ON JAIL SIDE. EXPLAINED TO PT PER PAULINA AND SHE UNDERDSTANDS AND IS BETTER NOW. CHIDI BO WILL BE HER AT 4PM TO PICK PT UP.
--- NOTE | 2017-01-03 15:24 | NUR ---
PTS DAUGHTER IS HERE TO HELP HER TO GET READY TO GO TO [place]. PT REQUESTED PAIN PILL SINCE SHE HAS TO RIDE IN [place].
--- NOTE | 2017-01-03 15:45 | NUR ---
PT WAS DRESSED FOR TRANSFER TO [facility]. HER DAUGHTER HELPED. PT HAD A LITTLE REDNESS LEFT UPPER BUTTOCK OVER ARNAV PROMINENCE. BUTTT PASTE APPLIED. PT COMPLETELY DRESSED AND WAITING.
--- NOTE | 2017-01-03 16:45 | NUR ---
TALKED TO NURSE AT [facility] AND GAVE HER REPORT ON MRS. CHAIREZ. TOLD HER SHE NEEDED TO CALL DR SHARMA'S GERIATRICIAN TOMM TO GET HIS ORDERS FOR POST OP CARE FOR REHAB AND PT ORDER. SHE AGREED TO DO SO. SENT DISCHARGE PAPERS AND PRESCRIPTIONS WITH PT'S DAUGHTER, WESTON.
--- NOTE | 2017-02-15 15:22 | OP ---
PATIENT NAME: DAKSHA CHAIREZ MEDICAL RECORD: [id number] :[birth year] LOCATION:[place] [facility]1216 ADMISSION DATE:12/23/16 SURGEON: DANIEL SHARMA MD DATE OF OPERATION: 12/26/2016 PREOPERATIVE DIAGNOSIS: Bilateral patellar fracture. POSTOPERATIVE DIAGNOSIS: Bilateral patellar fracture. PROCEDURE: Open reduction internal fixation of bilateral patellar fracture. SURGEON: Daniel Sharma MD. ANESTHESIA: General. INTRAOPERATIVE COMPLICATIONS: None. SUMMARY OF PATHOLOGIC FINDINGS: The patient had a patellar fracture amenable to transverse screw and FiberWire fixation. OPERATIVE SUMMARY IN DETAIL: After obtaining the appropriate preoperative orthopedic surgery consents as well as anesthetic consultation, evaluation and clearance, the patient was brought to the operating room and placed on the operating table in supine position. After general laryngeal mask airway was administered, bilateral lower extremities were prepped and draped in a routine sterile fashion with tourniquet on each, right side was approached first. Incision was made from midline approach to the patella, was taken down to the level of the fractures where the fracture was identified and reduced after fracture hematoma was removed. Reduction was held with a clamp, two guidewires, 4.0 cannulated screws were placed across the fracture plane resulting in good compression of the fracture. A #2 FiberWire was then placed in a [id number] in the screws and tied with tension. Final fluoroscopy was taken on AP and lateral planes. The wound was irrigated and closed with #1 Vicryl followed by skin anju. Attention was then turned to the left knee, which likewise after the tourniquet was deflated on the right side, the left side was elevated and exsanguinated, tourniquet inflated to 350 mmHg. Routine midline incision was taken down to the level of the patella. Again, the fracture was identified and reduced and there was more splitting of the retinaculum this time, again two 4 mm cannulated screws were placed across the fracture and again a FiberWire was placed in a [id number] position through the cannulated screws and tied anteriorly for good reduction. A #2 Ethibond was utilized to reapproximate the retinaculum, was followed by #1 Vicryl, 2-0 Vicryl and skin anju. Sterile dressings were applied. Tourniquet was deflated. The patient was awakened and taken to the recovery room in stable condition. All final needle and sponge counts were correct. TRANSINT:[id number] Voice Confirmation ID: [id number] DOCUMENT ID: [id number] OPERATIVE REPORT [id number] DAKSHA CHAIREZ MD, DANIEL JACKSON at 1522 CC: [id number] DICTATION DATE: 02/13/17 1423 BAR AND FILLER ASSEMBLER: 02/13/17 2335 DIS IN 01/03/17 [address] [place] [address]
== END 2017-01-03 16:30 | disposition home or self-care (01) | DRG 516 ==
LOC: D.ER 15:16 → D.MS 18:26 → D.WS 01-02 17:18
PROVIDERS: Family Medicine; Physician Assistant; ADMIT Orthopaedic Surgery
PROC: 0QSD04Z Reposition Right Patella with Internal Fixation Device, Open Approach (ICD-10-PCS; principal; 2016-12-26 13:30)
PROC: 0QSF04Z Reposition Left Patella with Internal Fixation Device, Open Approach (ICD-10-PCS; principal; 2016-12-26 13:30)
DX: S82.042A Displaced comminuted fracture of left patella, initial encounter for closed fracture (principal); S42.212A Unspecified displaced fracture of surgical neck of left humerus, initial encounter for closed fracture; S42.292A Other displaced fracture of upper end of left humerus, initial encounter for closed fracture; V89.2XXA Person injured in unspecified motor-vehicle accident, traffic, initial encounter; D64.9 Anemia, unspecified; N28.9 Disorder of kidney and ureter, unspecified; I25.10 Atherosclerotic heart disease of native coronary artery without angina pectoris; Z95.5 Presence of coronary angioplasty implant and graft; E87.6 Hypokalemia

== ENCOUNTER 2017-02-09 05:19 | Inpatient (IN) | payer MEDICARE ==
[2017-02-03 16:02] LABS: BASOPHILS 0.2 % (0.0-2.0); EOSINOPHILS 0.1 % (0-7); HEMATOCRIT 38.1 % (36.0-48.0); HEMOGLOBIN 11.7 g/dL (12-16); IMMATURE GRANULOCYTES 0.2 % (0-5); LYMPHOCYTES 10.4 % (15-50); MCH 27.5 pg (26.0-34.0); MCHC 30.7 g/dL (31.0-37.0); MCV 89.4 fL (80.0-100.0); MEAN PLATELET VOLUME 10.3 fL (7.4-10.4); MONOCYTES 5.6 % (2-11); NEUTROPHILS 83.5 % (40-80); PLATELET COUNT 369 10x3/uL (130-400); RBC 4.26 10x6/uL (4.00-5.40); RDW 19.6 % (11.5-14.5); WBC 14.4 10x3/uL (4.8-10.8)
[2017-02-03 16:10] LABS: ANION GAP 13.3 mmol/L (8-16); CALCIUM 8.9 mg/dL (8.5-10.1); CARBON DIOXIDE 24.7 mmol/L (21.0-32.0); CREATININE - SERUM 1.3 mg/dL (0.6-1.3)
[2017-02-03 16:13] LABS: APTT 31.6 SECONDS (22.8-39.4); INR 1.02 (0.85-1.17); PROTIME 13.3 SECONDS (11.6-15.0)
[2017-02-03 16:15] LABS: APPEARANCE CLEAR (CLEAR); BILIRUBIN NEGATIVE (NEGATIVE); COLOR YELLOW (YELLOW); GLUCOSE NEGATIVE (NEGATIVE); KETONE NEGATIVE (NEGATIVE); LEUKOCYTE ESTERASE 2+ (NEGATIVE); NITRITE NEGATIVE (NEGATIVE); PROTEIN TRACE mg/dL (NEGATIVE); RED CELLS - URINE 0-5 /hpf (0-5); UROBILINOGEN NORMAL (NORMAL)
[2017-02-03 16:16] LABS: BACTERIA MODERATE /hpf (NONE SEEN)
[~2017-02-09] VITALS: Ht 157.5 cm; Wt 65.0 kg
[2017-02-09] VITALS (9 sets, daily range): BP systolic 95–138; BP diastolic 48–75; Ht 157.5 cm; Wt 65.0 kg
[~2017-02-09 05:19] MED LIST: BENTYL 20 MG TA20 MG PO; DIOVAN40 MG PO; ELIQUIS2.5 MG PO; K-DUR20 MEQ PO; LASIX40 MG PO; LYRICA50 MG PO; MECLIZINE HCL25 MG PO; NITROQUICK0.4 MG SL; PERCOCET 10/3251 TA1 PO; PLAVIX75 MG PO; PRISTIQ50 MG PO; PROTONIX40 MG PO; ROBAXIN-750750 MG PO
[2017-02-09] MEDS ORDERED: ANTIBIOTIC PO (07:07)
--- NOTE | 2017-02-09 07:53 | NUR ---
4423 TALKED WITH Emy FERREIRA ABOUT CARDIAC CLEARANCE. 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 ANESTHESIA NOTIFIED
[2017-02-09 08:00] LABS: BASOPHILS 0.6 % (0.0-2.0); EOSINOPHILS 2.8 % (0-7); HEMATOCRIT 33.8 % (36.0-48.0); HEMOGLOBIN 10.4 g/dL (12-16); LYMPHOCYTES 30.6 % (15-50); MCH 27.2 pg (26.0-34.0); MCHC 30.8 g/dL (31.0-37.0); MCV 88.5 fL (80.0-100.0); MONOCYTES 9.3 % (2-11); NEUTROPHILS 56.7 % (40-80); PLATELET COUNT 249 10x3/uL (130-400); RBC 3.82 10x6/uL (4.00-5.40); RDW 19.8 % (11.5-14.5)
[2017-02-09 08:10] LABS: ANION GAP 10.6 mmol/L (8-16); CALCIUM 8.9 mg/dL (8.5-10.1); CARBON DIOXIDE 23.5 mmol/L (21.0-32.0); CREATININE - SERUM 1.5 mg/dL (0.6-1.3); POTASSIUM - SERUM 3.1 mmol/L (3.5-5.1)
[2017-02-09 08:37] LABS: APTT 27.2 SECONDS (22.8-39.4); INR 1.01 (0.85-1.17); PROTIME 13.1 SECONDS (11.6-15.0)
[2017-02-09 09:57] LABS: APPEARANCE CLEAR (CLEAR); BACTERIA FEW /hpf (NONE SEEN); BILIRUBIN NEGATIVE (NEGATIVE); COLOR DK YELLOW (YELLOW); EPITHELIAL CELLS 0-5 /hpf (0-5); GLUCOSE NEGATIVE (NEGATIVE); KETONE NEGATIVE (NEGATIVE); LEUKOCYTE ESTERASE 1+ (NEGATIVE); MUCUS <1+ /lpf (NONE SEEN); NITRITE NEGATIVE (NEGATIVE); PROTEIN NEGATIVE (NEGATIVE); RED CELLS - URINE RARE /hpf (0-5); SPECIFIC GRAVITY 1.015 (1.005-1.020); WHITE CELLS - URINE 0-5 /hpf (0-5)
[2017-02-09 09:58] LABS: CALCIUM OXALATE CRYSTALS 0-5 /hpf (NONE SEEN)
--- NOTE | 2017-02-09 11:24 | NUR ---
CARE TO NURYS RIOS RN @[phone]
--- NOTE | 2017-02-09 12:15 | NUR ---
PATIENT TO ROOM AT THIS TIME. VS STABLE. IV INTACT. BLOCK INTACT. DRESSING TO SHOULDER CLEAN AND DRY. NEUROVASCULAR CHECK LEFT ARM WNL. PATIENT HAS NO PAIN. CALL LIGHT WITHIN REACH.
--- NOTE | 2017-02-09 13:15 | NUR ---
PATIENT IN BED WITH NO COMPLAINTS. NEUROVASCULAR CHECK TO PAULINA FAGAN. FAMILY AT BEDSIDE. IV INTACT. CALL LIGHT WITHIN REACH.
--- NOTE | 2017-02-09 14:15 | NUR ---
PATIENT IN BED WITH IV INTACT. NO COMPLAINTS. BSCDS ON AND WORKING. VS STABLE. NEURO CHECKS WNL. TOLERATED CLEAR DIET WITH NO N/V, CALL LIGHT WITHIN REACH.
--- NOTE | 2017-02-09 15:15 | NUR ---
PATIENT IN BED WITH IV INTACT. VS STABLE. NO COMPLAINTS AT THIS TIME. FAMILY AT BEDSIDE. CALL LIGHT WITHIN REACH. NEURO CHECKS WNL.
--- NOTE | 2017-02-09 17:40 | OP ---
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 PROCEDURE: Left total shoulder arthroplasty. SURGEON: Daniel Sharma MD ANESTHESIA: General. INTRAOPERATIVE COMPLICATIONS: None. 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 The patient did have arthritis prior to the fracture that she sustained. OPERATIVE SUMMARY IN DETAIL: After obtaining the appropriate preoperative orthopedic surgery consents as well as anesthetic consultation, evaluation and clearance, the patient was brought to the operating room and placed on the operating table in supine position. After general laryngeal mask was administered, the patient was checked placed in the beach chair position. All pressure points well padded. She was held firmly to the operating table using the vacuum pack suction system. Left upper extremity and shoulder were then prepped and draped in a routine sterile fashion. The arm was held in the Arthrex Trimano device. Deltopectoral incision was taken down to the clavipectoral fascia. The deltoid was retracted laterally. Conjoined tendon was gently retracted medially. After reviewing the CT scan preoperatively and findings intraoperatively, it was felt that the best option for this patient was not a reverse total shoulder. However, it is to treat the fracture with a standard total shoulder. Tuberosities were split, subscapularis was reflected anteriorly. The greater tuberosity remained attached. Humeral head was then extracted and the glenoid was approached. Circumferential labrectomy was then followed by serial and sequential reaming size medium vault block was placed in the glenoid after the cement. Excess cement was removed. The cement was allowed to harden. Attention was returned to the proximal humerus. Given the anatomy, approach was taken to put slightly more retroversion and 30 degrees approximately 35 degrees. The serial and sequential reaming and broaching was done for a size 7 stem. Cement restrictor was put into place and the size 7 stem was cemented into place. All excess cement was removed. The humeral head was put into place, tamped on the Fontaenz taper. Shoulder was reduced. The lesser tuberosity was then pulled around the backside of the stem with the appropriate amount of bone removed so that it would fit nicely. The bone graft was then packed into a small cavitary defect of superior aspect of the stem. A [id number] reapproximation was then done with #2 FiberWire. This resulted in anatomic congregational of the lesser tuberosity to the greater tuberosity and the rotator cuff likewise was reapproximated. Having completed this, the wound was again irrigated and final closure was achieved with #1 Vicryl, 2-0 Vicryl and OPERATIVE REPORT [id number] DAKSHA CHAIREZ skin anju. Sterile dressings were applied. The patient was awakened and taken to the recovery room in stable condition. All final needle and sponge counts were correct. TRANSINT:[id number] Voice Confirmation ID: [id number] DOCUMENT ID: [id number] EDITH TAY, DANIEL JACKSON at 1740 CC: [id number] DICTATION DATE: 02/09/[address] MANAGER: 02/09/17 1229 ADM IN [facility] [address] [place] [address]
--- NOTE | 2017-02-09 18:45 | NUR ---
PATIENT IN BED WITH VS STABLE. NO COMPLAINTS AT THIS TIME. IV INTACT. BSCDS ON AND WORKING. NEUROCHECKS WNL. SLING ON. CALL LIGHT WITHIN REACH.
--- NOTE | 2017-02-09 23:33 | NUR ---
ASSESSED AT THE BEGINNING OF THE SHIFT. PT IS ALERT AND ORIENTED, BUT VERY HARD TO UNDERSTAND VERBALLY. SHE HAS CALLED NURSES TO ROOM FREQUENTLY FOR VARIOUS THINGS AND ONCE THOUGHT WE DISCONNECTED HER CALL LIGHT BECAUSE SHE SAW HER BP CUFF ON THE BED RAIL AND IT LOOKED DISCONNECTED TO HER. THE CALL LIGHT WAS UNDER HER ARM. SHE HAS A DRESSING TO HER SHOULDER LEFT SIDE AND IT IS BLOCKED AND STILL NUMB. PULSE OX IS IN PLACE AND IT WAS 97%. WE ARE USING A BEDPAN WITH HER AND SSHE IS VOIDING WELL. SCD'S ARE IN PLACE. THE BED IS LOW, RAILS UP X'S 2 WITH THE CALL LIGHT IN P;TEMITOPE AND BED ALARM ON.
[2017-02-10 04:16] VITALS: BP 122/50
[2017-02-10 05:03] LABS: HEMATOCRIT 27.2 % (36.0-48.0); HEMOGLOBIN 8.5 g/dL (12-16); MCH 27.8 pg (26.0-34.0); MCHC 31.3 g/dL (31.0-37.0); MCV 88.9 fL (80.0-100.0); MEAN PLATELET VOLUME 9.9 fL (7.4-10.4); RBC 3.06 10x6/uL (4.00-5.40)
[2017-02-10 05:04] LABS: WBC 6.9 10x3/uL (4.8-10.8)
--- NOTE | 2017-02-10 07:00 | NUR ---
REPORT RECIEVED ASSUMED CARE. PATIENT IN BED WITH NO COMPLAINTS AT THIS TIME. IV INTACT. CALL LIGHT WITHIN REACH.
[2017-02-10 08:18] VITALS: BP 151/61
[2017-02-10 13:02] VITALS: BP 110/52
[2017-02-10 16:31] VITALS: BP 135/54
--- NOTE | 2017-02-10 16:31 | NUR ---
Patient Name: DAKSHA CHAIREZ Admission Status: Elective Accout number: [id number] Admission Date: 02-09-2017 : 1945 Admission Diagnosis:OTH DISP FX OF UPPER END OF LEFT HUMERUS, INIT FOR CLOS Attending: RUBI Current LOS: 1 Anticipated DC Date: 02-11-2017 Planned Disposition: Home Primary Insurance: [employer] CHOICE PPO MCR ADVANT Discharge Planning Comments: CM SPOKE WITH PATIENT REGARDING D/C NEEDS AND PLANS. PATIENT STATED HER DAUGHTER (WESTON) IS DRIVING HER HOME AT DISCHARGE. PATIENT IS STAYING WITH HER DAUGHTER. PATIENT STATED THERE ARE TWO STEPS W/RAILS TO ENTER HOME AND HER SON HELPS HER UP. PATIENT IS INDEPENDENT WITH HER CARE AND HAS A WALKER, WHEELCHAIR, SHOWER CHAIR, AND RAISED TOILET SEAT AT HER DAUGHTERS. PATIENTS PCP IS DR. VASQUEZ IN [place] AND USES [facility] IN [place]. PATIENT IS CURRENT WITH [facility] AND THEY HAVE BEEN NOTIFIED PATIENT SHOULD D/C TOMORROW. PATIENT SIGNED THE IMM FORM. CM WILL CONTINUE TO FOLLOW PATIENT WITH D/C NEEDS AND PLANS. PCP DR. VASQUEZ [facility] ([place]) [phone] WESTON (DAUGHTER) [phone] Filter Filler: Lucy Cabrales Is the patient Alert and Oriented? Yes 0 * How many steps to enter\exit or inside your home? 2 W/RAILS 0 * PCP DR. VASQUEZ [place] 0 * Pharmacy [facility] IN [place] 0 * Preadmission Environment Home with Family 0 * ADLs Independent 0 * Equipment Elevated [place] Seat Shower Chair Walker Wheelchair 0 * List name and contact numbers for known caregivers / representatives who currently or will assist patient after discharge: WESTON [phone] 0 * Community resources currently utilized Home Health 0 * Please name any agencies selected above. [facility] 0 * Additional services required to return to the preadmission environment? Yes 0 * Can the patient safely return to the preadmission environment? Yes 0 * Has this patient been hospitalized within the prior 30 days at any hospital? No 0 Grand Total: 0
--- NOTE | 2017-02-10 18:45 | NUR ---
PATIENT IN BED WITH IV INTACT. DRESSING TO SHOULDER CLEAN AND DRY. NO COMPLAINTS. BA ON. CALL LIGHT WITHIN REACH.
[2017-02-10 19:41] VITALS: BP 138/45
[2017-02-11] VITALS (12 sets, daily range): BP systolic 97–156; BP diastolic 50–72
[2017-02-11 05:17] LABS: HEMATOCRIT 25.8 % (36.0-48.0); HEMOGLOBIN 8.1 g/dL (12-16); MCH 27.8 pg (26.0-34.0); MCHC 31.4 g/dL (31.0-37.0); MCV 88.7 fL (80.0-100.0); MEAN PLATELET VOLUME 9.6 fL (7.4-10.4); RBC 2.91 10x6/uL (4.00-5.40); RDW 20.2 % (11.5-14.5); WBC 6.8 10x3/uL (4.8-10.8)
--- NOTE | 2017-02-11 08:05 | NUR ---
PATIENT RECEIVED ALERT IN HIGH REID POSITION. RESPIRATIONS EVEN AND UNLABORED. DENIES NEEDS. SIDE RAILS UP X2. BED IN LOW POSITION. CALL LIGHT IN REACH.
--- NOTE | 2017-02-11 08:53 | NUR ---
PATIENT SITTING UP IN CHAIR AT BEDSIDE. NO SIGNS OF DISTRESS NOTED. SCHEDULED MEDICATION ADMINISTERED. CALL LIGHT IN REACH. DENIES NEEDS.
--- NOTE | 2017-02-11 11:27 | NUR ---
PATIENT ALERT IN BED. RESPIRATIONS EVEN AND UNLABORED. C/O PAIN 06/08. PERCOCET ADMINISTERED PER PRN ORDER. SIDE RAILS UP X2. BED IN LOW POSITION. CALL LIGHT IN REACH. BED ALARM ON.
--- NOTE | 2017-02-11 13:45 | NUR ---
PATIENT IN MID REID POSITION RESTING QUIETLY WITH EYES CLOSED. RESPIRATIONS EVEN AND UNLABORED. SIDE RAILS UP X2. BED IN LOW POSITION. CALL LIGHT IN REACH.
[2017-02-11] MEDS ORDERED: PERCOCET 10/3251 TA1 PO (14:48)
--- NOTE | 2017-02-11 15:50 | NUR ---
PRBC INITIATED PER ORDERS. TRANSFUSING TO RIGHT FOREARM WITHOUT DIFFICULTY. VITAL SIGNS STABLE. SIDE RAILS UP X2. BED IN LOW POSITION. CALL LIGHT IN REACH. BED ALARM ON.
--- NOTE | 2017-02-11 17:50 | NUR ---
PR[facility] CONTINUE TO TRANSFUSE WITHOUT DIFFICULTY. VITAL SIGNS STABLE. SIDE RAILS UP X2. BED IN LOW POSITION. CALL LIGHT IN REACH.
--- NOTE | 2017-02-11 22:48 | NUR ---
PATIENT IS RESTING IN BED AND REQUESTED TO USE THE BEDPAN. I PUT PATIENT ON THE BEDPAN AND WOLF ASSISTED THE PATIENT OFF. ADMINISTERED MEDS AND PATIENT DENIES OTHER NEEDS AT THIS TIME. BED IN LOWEST POSITION, CALL LIGHT WITHIN REACH, AND BED ALARM ON. ENCOURAGED THE PATIENT TO CALL IF SHE HAS FURTHER NEEDS.
[2017-02-12 05:32] LABS: HEMATOCRIT 30.7 % (36.0-48.0)
[2017-02-12 05:33] LABS: HEMOGLOBIN 9.9 g/dL (12-16)
--- NOTE | 2017-02-12 07:15 | NUR ---
PATIENT RECEIVED IN BED ALERT AND RESTING QUIETLY. RESPIRATIONS EVEN AND UNLABORED. SIDE RAILS UP X2. BED IN LOW POSITION. CALL LIGHT IN REACH.
--- NOTE | 2017-02-12 08:04 | NUR ---
ALERT IN BED. IV TO RIGHT FOREARM D/C WITH CATH TIP INTACT. SITE COVERED WITH GAUZE AND BANDAID. SCHEDULED MEDICATION ADMINISTERED. ANTICIPATING D/C. SIDE RAILS UP X2. BED IN LOW POSITION. CALL LIGHT IN REACH.
--- NOTE | 2017-02-12 09:30 | NUR ---
D/C TEACHING AND PAPER PRESCRIPTION GIVEN TO PATIENT AND DAUGHTER. STATES UNDERSTANDING. TRANSFERRED DOWNSTAIRS VIA WHEELCHAIR WITH NURSE AID.
== END 2017-02-12 09:30 | disposition home health service (06) | DRG 483 ==
LOC: D.SDCHOLD 05:19 → D.MS 05:19 → D.SDCHOLD 08:30 → D.MS 11:44 → D.SDCHOLD 15:30 → D.MS 02-12 09:30
PROVIDERS: Anesthesiology; ADMIT Orthopaedic Surgery
PROC: 0RRK0JZ Replacement of Left Shoulder Joint with Synthetic Substitute, Open Approach (ICD-10-PCS; principal; 2017-02-09 08:45)
DX: S42.212A Unspecified displaced fracture of surgical neck of left humerus, initial encounter for closed fracture (principal); M19.012 Primary osteoarthritis, left shoulder; W17.89XA Other fall from one level to another, initial encounter; D64.9 Anemia, unspecified; E87.6 Hypokalemia; I25.10 Atherosclerotic heart disease of native coronary artery without angina pectoris; K21.9 Gastro-esophageal reflux disease without esophagitis; R06.81 Apnea, not elsewhere classified

== ENCOUNTER 2017-02-23 05:53 | Inpatient (IN) | payer MEDICARE ==
[2017-02-23] VITALS (14 sets, daily range): BP systolic 104–153; BP diastolic 56–91; Ht 157.5 cm; Wt 65.8 kg
[~2017-02-23] VITALS: Ht 157.5 cm; Wt 65.8 kg
[~2017-02-23 05:53] MED LIST changes: +ANTIBIOTIC PO
[2017-02-23 07:12] LABS: BASOPHILS 0.2 % (0-2); EOSINOPHILS 1.6 % (0-7); HEMATOCRIT 36.4 % (36.0-48.0); HEMOGLOBIN 11.3 g/dL (12-16); IMMATURE GRANULOCYTES 0.3 % (0-5); LYMPHOCYTES 10.5 % (15-50); MCH 28.3 pg (26.0-34.0); MCV 91.2 fL (80.0-100.0); MEAN PLATELET VOLUME 9.7 fL (7.4-10.4); MONOCYTES 4.2 % (2-11); NEUTROPHILS 83.2 % (40-80); RBC 3.99 10x6/uL (4.00-5.40); WBC 9.8 10x3/uL (4.8-10.8)
[2017-02-23 07:17] LABS: PLATELET COUNT 257 10x3/uL (130-400)
[2017-02-23 07:20] LABS: ANION GAP 14.8 mmol/L (8-16); CALCIUM 8.3 mg/dL (8.5-10.1); CARBON DIOXIDE 22.6 mmol/L (21.0-32.0); CREATININE - SERUM 1.2 mg/dL (0.6-1.3); POTASSIUM - SERUM 3.4 mmol/L (3.5-5.1)
--- NOTE | 2017-02-23 08:15 | NUR ---
PT AOX4 RESP EVEN AND NONLABORED PT C/O PAIN OF 10 IN LEFT KNEE SI. IMMOBILIZER NOTED ON LEFT SHOULDER FROM RECENT SHOULDER REPAIR IV TO RIGHT WRIST PATENT AND INTACT SRX2 BED AT LOWEST SETTING CALL LIGHT WITHIN REACH WILL CONTINUE TO MONITOR
[2017-02-23] MEDS ORDERED: CARAFATE1 G PO (08:31)
[2017-02-23] MEDS ORDERED: IBUPROFEN800 MG PO (08:33)
--- NOTE | 2017-02-23 17:05 | NUR ---
RECEIVED PT BACK FROM [facility] PT AOX4 RESP EVEN AND NONLABORED PT SITTING UP IN BED FAMILY AT THE BEDSIDE. PT IN PAIN. IV PHARMACY TECHNICIAN INPATIENT REATTACHED TO PT IV AT THIS TIME. PT LEFT LEG WITH 4X4 AND TEMITOPE BANDAGE WITH IMMOBILIZER IN PLACE. Cap refill <3 seconds in left foot
--- NOTE | 2017-02-23 17:26 | NUR ---
PT CRYING IN BED IN PAIN 0.4MG BOLUS VIA IV AT THIS TIME
--- NOTE | 2017-02-23 23:30 | NUR ---
PT VOIDED 750 ON BEDPAN. LEFT KNEE IN IMMOBILIZER AND LEFT ARM IN SLING. PAIN IS CONTROLLED WITH FILM WASHER. NO NEEDS. WILL CONTINUE TO MONITOR.
[2017-02-24 04:00] VITALS: BP 113/56
[2017-02-24 08:20] VITALS: BP 110/54
--- NOTE | 2017-02-24 08:22 | NUR ---
PT SEEN. NO COMPLAINTS OF PAIN OR DISCOMFORT. KNEE IMMOBILIZER IN PLACE ON LEFT KNEE. IMMOBLIZER NOTED LEFT SHOULDER. SCD ON RIGHT LEG ONLY. USING BINDER STRIPPER MACHINE AND STATES PAIN IS CONTROLLED. BED ALARM ON FOR SAFETY. CALL LIGHT IN PLACE
[2017-02-24 09:51] LABS: HEMATOCRIT 30.6 % (36.0-48.0); HEMOGLOBIN 9.5 g/dL (12-16); MCH 28.7 pg (26.0-34.0); MCV 92.4 fL (80.0-100.0); MEAN PLATELET VOLUME 10.2 fL (7.4-10.4); RBC 3.31 10x6/uL (4.00-5.40); RDW 18.7 % (11.5-14.5); WBC 8.2 10x3/uL (4.8-10.8)
--- NOTE | 2017-02-24 10:04 | NUR ---
Rehab Note- Acute Rehab Prescreen order received. The patient has [employer] Insurance and will require a PreAuth for an acute rehab stay. Will submit for PreAuth to [employer]. Thank you for this referral! Hemalatha Sellers RN Clinical Liaison, [facility] Rehab/Michael
--- NOTE | 2017-02-24 11:35 | NUR ---
Patient Name: DAKSHA VYAS Admission Status: ER Accout number: [id number] Admission Date: 02-23-2017 : 1945 Admission Diagnosis:DISRUPTION OF EXTERNAL OPERATION (SURGICAL) WOUND, NEC, Attending: RUBI Current LOS: 1 Anticipated DC Date: 02-27-2017 Planned Disposition: Correction Facility Primary Insurance: [employer] CHOICE PPO MCR ADVANT Discharge Planning Comments: CM MET WITH PATIENT REGARDING D/C NEEDS AND PLANS. PATIENT STATED SHE LIVES WITH HER DAUGHTER (WESTON) AND THERE ARE 4 STEPS W/O RAILS TO ENTER HOME AND NO STAIRS INSIDE. PATIENT STATED HER DAUGHTER HELPS HER DAILY AND SHE HAS A SHOWER CHAIR, WALKER, CANE, AND WHEELCHAIR AT HOME. PATIENTS PCP IS DR. GRECO IN [place] AND USES [facility] IN [place]. PATIENT IS CURRENT WITH [facility]. PATIENTS HAS SIGNED THE M[facility] ANN FORM FOR [facility]. CM WILL CONTINUE TO FOLLOW PATIENT WITH D/C NEEDS AND PLANS. PCP DR. GRECO ([place]) [facility] ([place]) [phone] WESTON (DAUGHTER) [phone] Consumer Experience Consultant: Lucy Cabrales Is the patient Alert and Oriented? Yes 0 * How many steps to enter\exit or inside your home? 4 0 * PCP DR. HERNANDEZ ([place]) 0 * Pharmacy [facility] [place] 0 * Preadmission Environment Home with Family 0 * ADLs Partial Dependent 0 * Partial ADLs (Assistance needed) Ambulation Bathing Dressing Medication Management Toileting Transfers 0 * Equipment Cane Shower Chair Walker Wheelchair 0 * List name and contact numbers for known caregivers / representatives who currently or will assist patient after discharge: WESTON (DAUGHTER) [phone] 0 * Community resources currently utilized Home Health 0 * Please name any agencies selected above. [facility] 0 * Additional services required to return to the preadmission environment? Yes 0 * Can the patient safely return to the preadmission environment? Yes 0 * Has this patient been hospitalized within the prior 30 days at any hospital? Yes 0 Grand Total: 0
[2017-02-24 12:58] VITALS: BP 112/54
--- NOTE | 2017-02-24 13:48 | NUR ---
BACK IN BED PER THERAPY. HARD SECTION OF LEFT SHOULD IMMOBILIZER REMOVED FOR DISCOMFORT PER THERAPY. STATES FEELS BETTER. BED ALARM ON FOR SAFETY AND CALL LIGHT IN REACH
[2017-02-24 16:19] VITALS: BP 137/65
--- NOTE | 2017-02-24 19:15 | NUR ---
LYING IN BED TALKING ON PHONE, ASSESSMENT COMPLETED, NO ACUTE DISTRESS NOTED, IV INFUSING TO R ARM, LLE IN IMMOBILIZER, RLE WITH SCD IN PLACE, L ARM IN SLING, DENIES NEEDS AT THIS TIME, SR'S UP, CL IN REACH, WILL MONITOR
[2017-02-24 20:00] VITALS: BP 130/61
--- NOTE | 2017-02-24 20:13 | NUR ---
ROUTINE MEDS GIVEN PER MAR ALONG WITH PRN PERCOCET FOR C/O L KNEE PAIN 08/08, SUMANTH WELL, DENIES OTHER NEEDS AT THIS TIME, FALL PRECAUTIONS IN PLACE, CL IN REACH
--- NOTE | 2017-02-24 21:14 | NUR ---
PT REQUESTING SEAFOOD MANAGER PUMP BE RESTARTED, ATTEMPTED TO CONTACT SOA ENGINEER MD, MESSAGE LEFT, AWAITING RETURN CALL, SR'S UP, CL IN REACH, WILL MONITOR
--- NOTE | 2017-02-24 23:38 | NUR ---
RESTING WITH EYES CLOSED, SNORING RESP, NO DISTRESS NOTED, SR'S UP, CL IN REACH
--- NOTE | 2017-02-25 01:41 | NUR ---
CONTINUES TO REST WITH EYES CLOSED, SNORING RESP, L KNEE IMMOBILIZER AND L ARM SLING IN PLACE, SR'S UP, CL IN REACH
--- NOTE | 2017-02-25 03:20 | NUR ---
PRN PERCOCET GIVEN FOR C/O L ELBOW AND L KNEE PAIN , SUMANTH WELL, CL IN REACH
--- NOTE | 2017-02-25 04:32 | NUR ---
SONI FELIPE PER [place], SUMANTH WELL, DENIES NEEDS AT THIS TIME, CL IN REACH
[2017-02-25 05:34] LABS: HEMATOCRIT 28.6 % (36.0-48.0); HEMOGLOBIN 8.8 g/dL (12-16)
--- NOTE | 2017-02-25 07:30 | NUR ---
PATIENT RECEIVED IN MID REID POSITION RESTING WITH EYES CLOSED. RESPIRATIONS EVEN AND UNLABORED. SIDE RAILS UP X2. BED IN LOW POSITION. CALL LIGHT IN REACH.
[2017-02-25 08:03] VITALS: BP 129/67
--- NOTE | 2017-02-25 08:35 | NUR ---
PATIENT ALERT IN MID REID POSITION. RESPIRATIONS EVEN AND UNLABORED. SCHEDULED MEDICATION ADMINISTERED WELL PRN PERCOCET FOR PAIN 06/08. SIDE RAILS UP X2. BED IN LOW POSITION. CALL LIGHT IN REACH.
--- NOTE | 2017-02-25 09:50 | NUR ---
SITTING UP IN CHAIR ALERT. IV TO RIGHT WRIST LEAKING. IV D/C WITH CATH TIP INTACT. SITE COVERED WITH GAUZE AND BANDAID. NEW 22 GAUGE IV SITED TO RIGHT FOREARM X1 ATTEMPT. FLUSHES EASY WITH BRISK BLOOD RETURN PRESENT. SECURED WITH TAPE AND TEGADERM. TOLERATED WELL.
[2017-02-25 12:33] VITALS: BP 112/62
--- NOTE | 2017-02-25 12:45 | NUR ---
PATIENT ALERT IN BED. NO SIGNS OF DISTRESS NOTED. SCHEDULED MEDICATION ADMINSITERED. SIDE RAILS UP X2. BED IN LOW POSITION. CALL LIGHT IN REACH.
--- NOTE | 2017-02-25 14:57 | NUR ---
ALERT IN HIGH REID POSITION VISTING WITH FAMILY. RESPIRATIONS EVEN AND UNLABORED. SIDE RAILS UP X2. BED IN LOW POSITION. DENIES NEEDS.
[2017-02-25 15:34] VITALS: BP 121/67
--- NOTE | 2017-02-25 17:30 | NUR ---
PATIENT ALERT IN BED EATING DINNER. TOLERATING WELL. SIDE RAILS UP X2. BED IN LOW POSITION. CALL LIGHT IN REACH. FAMILY AT BEDSIDE.
--- NOTE | 2017-02-25 19:47 | NUR ---
LYING IN BED TALKING WITH GRANDDAUGHTER, ASSESSMENT COMPLETED, NO ACUTE DISTRESS NOTED, SLING IN PLACE TO L ARM, L LEG WITH IMMOBILIZER, DENIES NEEDS, SR'S UP, CL IN REACH, WILL MONITOR
[2017-02-25 20:00] VITALS: BP 121/63
--- NOTE | 2017-02-25 20:20 | NUR ---
MEDS GIVEN PER MAR, SUMANTH WE[place], FAMILY IN ROOM, CL IN REACH
--- NOTE | 2017-02-25 21:11 | NUR ---
PERCOCET GIVEN PER MAR, SUMANTH WELL, TALKING ON PHONE, NO NEEDS NOTED, CL IN REACH
--- NOTE | 2017-02-25 23:18 | NUR ---
LYING IN BED TALKING WITH GRD DTR, DENIES NEEDS, CL IN REACH
[2017-02-26] VITALS: BP 116/57
[2017-02-26 04:00] VITALS: BP 115/67
[2017-02-26 04:59] LABS: HEMOGLOBIN 9.2 g/dL (12-16)
--- NOTE | 2017-02-26 07:30 | NUR ---
PATIENT RECEIVED IN MID REID POSITION RESTING WITH EYES CLOSED. RESPIRATIONS EVEN AND UNLABORED. FAMILY AT BEDSIDE. SIDE RAILS UP X2. BED IN LOW POSITION. CALL LIGHT IN REACH.
[2017-02-26 07:57] VITALS: BP 163/81
--- NOTE | 2017-02-26 08:15 | NUR ---
PATIENT REPOSITIONED IN BED. WELL TOLERATED. SCHEDULED MEDICATION ADMINISTERED WELL PRN PERCOCET. FAMILY AT BEDSIDE. SIDE RAILS UP X2. BED IN LOW POSITION. CALL LIGHT IN REACH.
--- NOTE | 2017-02-26 10:30 | NUR ---
SITTING UP IN CHAIR AT BEDSIDE. CALL LIGHT IN REACH. FAMILY AT BEDSIDE.
[2017-02-26 12:41] VITALS: BP 135/71
--- NOTE | 2017-02-26 14:30 | NUR ---
ALERT IN BED RESTING QUIETLY. RESPIRATIONS EVEN AND UNLABORE. FAMILY PRESENT. MEDICATION ADMINISTERED PER ORDERS. SIDE RAILS UP X2. BED IN LOW POSITION. CALL LIGHT IN REACH.
[2017-02-26 15:57] VITALS: BP 134/57
--- NOTE | 2017-02-26 17:30 | NUR ---
ALERT IN BED EATING DINNER. TOLERATING WELL. SIDE RAILS UP X2. BED IN LOW POSITION. CALL LIGHT IN REACH.
--- NOTE | 2017-02-26 19:52 | NUR ---
ASSESSMENT COMPLETED, L KNEE IMMOBILIZER AND L SHOULDER SLING IN PLACE, NO ACUTE DISTRESS NOTED, DENIES NEEDS AT THIS TIME, FALL PRECAUTIONS IN PLACE, CL IN REACH, WILL MONITOR
[2017-02-26 20:00] VITALS: BP 128/68
--- NOTE | 2017-02-26 21:11 | NUR ---
PRN PERCOCET GIVEN FOR C/O L KNEE PAIN 05/08 ALONG WITH ROUTINE MEDS, SUMANTH WELL, CL IN REACH
--- NOTE | 2017-02-27 01:03 | NUR ---
RESTING WITH EYES CLOSED, SNORING RESP , NO DISTRESS NOTED, SR'S UP, CL IN REACH
--- NOTE | 2017-02-27 01:06 | NUR ---
CONTINUES TO REST WITH EYES CLOSED, SNORING RESP , WILL CONTINUE TO MONITOR, CL IN REACH
--- NOTE | 2017-02-27 03:31 | NUR ---
PRN PAIN MED GIVEN FOR C/O PAIN 05/08, SUMANTH WELL, CL IN REACH
[2017-02-27 04:00] VITALS: BP 143/87
[2017-02-27 06:09] LABS: HEMATOCRIT 30.4 % (36.0-48.0); HEMOGLOBIN 9.5 g/dL (12-16)
--- NOTE | 2017-02-27 07:00 | NUR ---
PATIENT RECEIVED IN MID REID POSITION RESTING QUIETLY WITH EYES CLOSED. RESPIRATIONS EVEN AND UNLABORED. SIDE RAILS UP X2. BED IN LOW POSITION. CALL LIGHT IN REACH.
[2017-02-27 07:54] VITALS: BP 132/76
--- NOTE | 2017-02-27 08:20 | NUR ---
ALERT IN BED. RESPIRATIONS EVEN AND UNLABORED. SCHEDULED MEDICATION ADMINISTERED. SIDE RAILS UP X2. BED IN LOW POSITION. CALL LIGHT IN REACH.
--- NOTE | 2017-02-27 08:36 | NUR ---
02/27/2017 8:35 DCP: Discharge Planning Patient Name: DAKSHA VYAS Encounter No: [id number] : 1945 Primary Insurance: [employer] CHOICE PPO MCR ADVANT Anticipated DC Date: 02-27-2017 Planned Disposition: Alf Facility External Planned Provider: Migdalia ARGUELLES follow-up note: Referral faxed and called to Lesli with [facility]. They will have to obtain authorization from [facility]. Patient and family in agreement with discharge plan. No changes to plan. Case management will follow and assist as needed. Emmanuelle Beauchamp
--- NOTE | 2017-02-27 10:16 | NUR ---
Rehab Note- Faxed clinicals to Marisol Mora with [employer] to review for possible Acute Rehab Stay. Awaiting approval. Hemalatha Sellers RN Clinical Liaison, [facility] Rehab/Michael
[2017-02-27 11:26] VITALS: BP 124/65
--- NOTE | 2017-02-27 12:10 | NUR ---
Rehab Note- Spoke with Marisol Mora with [employer], the patient has been denied an IRF stay but would be approved for a SNF stay. Informed SAGAR Ayala of denial. Called Tami at [facility] to inform them that the patient is approved for SNF stay and the clinical reviewer can see note per Marisol Mora in the [employer] system. Thank you for this referral! Hemalatha Sellers RN Clinical Liaison, [facility]/Michael
--- NOTE | 2017-02-27 12:14 | NUR ---
ALERT IN BED. NO SIGNS OF DISTRESS NOTED. PERCOCET PER PRN ORDER. NO FURTHER NEEDS VOICED. SIDE RAILS UP X2. BED IN LOW POSITION. CALL LIGHT IN REACH.
--- NOTE | 2017-02-27 13:43 | NUR ---
NUTRITION MONITORING & EVAL CHART REVIEWED, PT VISIT. TOLERATING REG DIET. ~50% INTAKE RECENT MEALS. WILL CONTINUE TO PROVIDE DIET, HONOR FOOD PREFERENCES. RD FOLLOWING
--- NOTE | 2017-02-27 13:55 | NUR ---
PATIENT SITTING UP IN CHAIR ALERT. NO SIGNS OF DISTRESS NOTED. DRESSING TO LEFT KNEE CHANGED PER ORDER. OLD DRESSING REMOVED. 28 SHARRON INTACT. REDNESS, INFLAMMATION, OR DRAINAGE NOTED TO INCISION. INCISION COVERED WITH XEROFORM, 4X4 GAUZE AND SECURED WITH TAPE. WELL TOLERATED.
[2017-02-27 15:41] VITALS: BP 128/67
--- NOTE | 2017-02-27 16:40 | NUR ---
ALERT IN BED WATCHING TV. NO SIGNS OF DISTRESS NOTED. RATES PAIN 7/10. PERCOCET PER PRN PAIN. DENIES FURTHER NEEDS. SIDE RAILS UP X2. BED IN LOW POSITION. CALL LIGHT IN REACH.
--- NOTE | 2017-02-27 19:55 | NUR ---
LYING IN BED AWAKE, ASSESSMENT COMPLETED, NO ACUTE DISTRESS NOTED, SLING IN PLACE TO L ARM AND IMMOBILIZER IN PLACE TO L LEG, DENIES NEEDS AT THIS TIME, ALARM AND SCD ON , SR'S UP, CL IN REACH, WILL MONITOR
[2017-02-27 20:00] VITALS: BP 126/58
--- NOTE | 2017-02-27 21:02 | NUR ---
MEDS GIVEN PER MAR, SUMANTH WELL, DENIES NEEDS AT THIS TIME, CL IN REACH
--- NOTE | 2017-02-27 23:47 | NUR ---
LYING IN BED WATCHING TV, DENIES NEEDS AT THIS TIME, SR'S UP, CL IN REACH
[2017-02-28] VITALS: BP 130/59
[2017-02-28 08:07] VITALS: BP 145/75
--- NOTE | 2017-02-28 08:30 | NUR ---
CM REASSESSMENT NOTE: PATIENT HAS BEEN ACCEPTED TO THE [facility] AND WILL DISCHARGE TODAY TO A SKILLED BED. FACILITY [facility] WILL PICK PATIENT UP AROUND 11:00AM. D/C IMM SERVED
--- NOTE | 2017-02-28 10:04 | NUR ---
PT SEEN AND ASSESSED. FOR DISCHARGE TODAY AT 1100. INCISION TO LEFT SHOULDER CLEAN DRY AND INTACT WITH STERI STRIPS IN PLACE-ARM IN SLING,. DRESSING TO LEFT KNEE CLEAN DRY AND INTACT WITH IMMOBLIZER IN PLACE. NO REDDNESS NOTED TO BUTTOCK. PERCOCET GIVEN FOR PAIN. BED ALARM ON FOR SAFETY. CALL LIGHT IN REACH
--- NOTE | 2017-02-28 10:29 | NUR ---
REPORT CALLED TO MARISA AT THE [facility]. AWAITING TRANSFER. BELONGINS INCLUDING CELL PHONE AND VOCATIONAL SERVICES SPECIALIST PACKED
--- NOTE | 2017-02-28 15:52 | NUR ---
PATIENT VOIDED IN BEDPAN. WAS ABLE TO TURN FROM SIDE TO SIDE WITH MINIMAL ASSIST. EMS HERE TO TRANSPORT TO THE [facility].
--- NOTE | 2017-02-28 15:53 | NUR ---
MANILLA ENVELOPE WITH PATIENT INFORMATION GIVEN TO THE EMS.
--- NOTE | 2017-03-08 13:29 | OP ---
PATIENT NAME: DAKSHA VYAS MEDICAL RECORD: [id number] :47 LOCATION:[id number] ADMISSION DATE:02/23/17 SURGEON: DANIEL SHARMA MD DATE OF OPERATION: 02/23/2017 PREOPERATIVE DIAGNOSIS: Open knee laceration with recurrent patellar fracture. POSTOPERATIVE DIAGNOSIS: Open knee laceration with recurrent patellar fracture. PROCEDURES: 1. Excisional debridement of open knee laceration to include skin, subcutaneous tissue, portions of fat, fascia, muscle and bone, greater than 20 cm. 2. ORIF of the patella. SURGEON: Daniel Sharma MD ANESTHESIA: General. INTRAOPERATIVE COMPLICATIONS: None. SUMMARY OF PATHOLOGIC FINDINGS: The patellar tip had been cut off and was fixed internally using suture anchors and FiberWire. OPERATIVE SUMMARY IN DETAIL: After obtaining the appropriate preoperative orthopedic surgery consent as well as anesthetic consultation, evaluation and clearance, the patient was brought to the operating room and placed on the operating table in supine position. After general laryngeal mask was administered, tourniquet was placed about the proximal aspect of left lower extremity. Left lower extremity was then prepped and draped in a routine sterile fashion. The tourniquet was not inflated during this case. The wound was then copiously irrigated again, small fragments of debris were taken down and then sharply fragments of necrotic appearing tissue were taken out using a scalpel as well as a curette and rongeur. The fracture had pulled slightly away from the superior aspect of the proximal pole of patella. In the fracture fragment itself, a 4.7 SwiveLock was placed, the tails of which were then used to tightly secure the proximal aspect of the superior pole of patella back into an anatomic position. Furthermore, FiberWires were used to reinforce the retinaculum about the fracture. Having completed this, the wound was again copiously irrigated and closed with #1 Vicryl followed by 2-0 Vicryl and followed by skin anju. Sterile dressings were applied. The patient was awakened and taken to recovery in stable condition. All final needle and sponge counts were correct. TRANSINT:[id number] Voice Confirmation ID: [id number] DOCUMENT ID: [id number] DANIEL SHARMA MD at 1329 CC: [id number] DICTATION DATE: 03/06/172000 FINANCIAL ANALYST: 03/07/17 0637 DIS IN 02/28/17 [facility] [address] [place] [address]
== END 2017-02-28 15:54 | DRG 909 ==
LOC: D.ER 05:53 → D.MS 07:18 → OBSVTIME 07:19 → D.MS 14:42
PROVIDERS: Emergency Medicine; ADMIT Orthopaedic Surgery
PROC: 0QBF0ZZ Excision of Left Patella, Open Approach (ICD-10-PCS; 2017-02-23)
PROC: 0QSF04Z Reposition Left Patella with Internal Fixation Device, Open Approach (ICD-10-PCS; principal; 2017-02-23 15:00)
DX: T81.31XA Disruption of external operation (surgical) wound, not elsewhere classified, initial encounter (principal); W01.0XXA Fall on same level from slipping, tripping and stumbling without subsequent striking against object, initial encounter; I25.10 Atherosclerotic heart disease of native coronary artery without angina pectoris; D64.9 Anemia, unspecified; N28.9 Disorder of kidney and ureter, unspecified; S82.002G Unspecified fracture of left patella, subsequent encounter for closed fracture with delayed healing

== ENCOUNTER 2017-06-12 02:40 | Emergency (ER) | payer MEDICARE ==
[2017-02-23 13:32] VITALS: BMI 26.5
[~2017-06-12 02:40] MED LIST changes: +CARAFATE1 G PO; +IBUPROFEN800 MG PO
== END 2017-06-12 06:01 | disposition home or self-care (01) ==
LOC: D.ER 02:40
DX: S81.012A Laceration without foreign body, left knee, initial encounter (principal); W06.XXXA Fall from bed, initial encounter; Y93.89 Activity, other specified; Y92.013 Bedroom of single-family (private) house as the place of occurrence of the external cause; I25.10 Atherosclerotic heart disease of native coronary artery without angina pectoris; I10 Essential (primary) hypertension; F17.200 Nicotine dependence, unspecified, uncomplicated